=== PATIENT | male | born 1950 | race Caucasian/White ===

== ENCOUNTER 2016-12-09 23:48 | Inpatient (IN) | payer MEDICARE, BC ==
[2016-12-09 23:49] VITALS: BMI 25.1
[2016-12-10] MEDS ORDERED: Sodium Chloride 0.9% 500 ML IV STA (00:10)
--- NOTE | 2016-12-10 00:16 | ED PDOC ---
Arrival/HPI - General Chief Complaint: GI Problem Time Seen by Provider: 12/10/16 00:01 Historian: Patient - History of Present Illness Narrative History of Present Illness (Text): 12/10/16 00:15 A 66 year old male, whose past medical history includes neurogenic bladder with suprapubic catheter, presents to the emergency department complaining of suprapubic and penile pain. Patient reports having had mild urine drainage from penis. pt states he has nausea and vomiting. pt states catheter was changed yesterday by dr gonzalez. pt reports urine is draining into leg bag. Patient denies of fever or any other complaints. 12/10/16 02:34 Symptom Onset: Sudden Symptom Course: Unchanged Context: Home Past Medical History - Provider Review Nursing Documentation Reviewed: Yes - Infectious Disease Hx of Infectious Diseases: None - Tetanus Immunization Tetanus Immunization: Unknown - Cardiac Hx Cardiac Disorders: Yes Hx Hypertension: Yes - Pulmonary Hx Respiratory Disorders: (SMOKED CIGARETTE H/O <PPD QUIT 40 YRS AGO) - Neurological Hx Neurological Disorder: No Hx Paralysis: No - HEENT Hx HEENT Disorder: Yes (reading glasses) - Renal Hx Renal Disorder: Yes (SELF CATH 4 X A DAY) Hx Neurogenic Bladder: Yes Other/Comment: PATIENT HAD LUMBAR AND CERVICAL SX-HAD NEUROGENIC BLADDER - - Endocrine/Metabolic Hx Endocrine Disorders: (BORDERLINE DM) - Hematological/Oncological Hx Blood Disorders: No Hx Blood Transfusions: No - Integumentary Other/Comment: ble discolorations - Musculoskeletal/Rheumatological Hx Musculoskeletal Disorders: Yes Other/Comment: cervical tube implaint due spinal fusion 03/2016 [facility] - Genitourinary/Gynecological Hx Genitourinary Disorders: Yes (URINARY RETENTION,BILATERAL HYDRONEPHROSIS) Hx Hematuria: Yes Other/Comment: retention, suprapubic cath insertion 07/18/14 - Psychiatric Hx Emotional Abuse: No Hx Physical Abuse: No Hx Substance Use: No - Surgical History Other/Comment: left knee sx, cervical spine sx 11/2011, lumbar spine sx 03/2012, cysto urethrogram bilateral stent insertion, colonoscopy 2013, suprapubic catheter insertion, cystotomy tube, and cystogram done today - Anesthesia Hx Anesthesia: Yes Hx Anesthesia Reactions: No Hx Malignant Hyperthermia: No - Suicidal Assessment Feels Threatened In Home Enviroment: No Family/Social History - Physician Review Nursing Documentation Reviewed: Yes Family/Social History: No Known Family HX Smoking Status: Former Smoker Hx Alcohol Use: No Hx Substance Use: No Allergies/Home Meds Allergies/Adverse Reactions: Allergies No Known Allergies Allergy (Unverified 06/16/16 23:28) Home Medications: Home Meds Medication Instructions Recorded Confirmed Amlodipine Besylate [Norvasc] 10 mg PO DAILY 07/10/14 12/10/16 Gabapentin [Neurontin] 300 mg PO TID 12/10/16 12/10/16 Labetalol [Trandate] 100 mg PO BID 12/10/16 12/10/16 Simvastatin 10 mg PO DAILY 12/10/16 12/10/16 oxyCODONE [oxyCODONE Immediate 5 mg PO Q6 12/10/16 12/10/16 Release Tab] Review of Systems - Physician Review All systems were reviewed & negative as marked: Yes - Review of Systems Constitutional: absent: Fevers, Night Sweats Respiratory: absent: SOB, Cough Cardiovascular: absent: Chest Pain Gastrointestinal: absent: Abdominal Pain, Diarrhea, Nausea, Vomiting Genitourinary Male: Other (suprapubic penile pain). absent: Urinary Output Changes Physical Exam Vital Signs Reviewed: Yes Vital Signs Temp Pulse Resp BP Pulse Ox 12/10/16 03:09 16 98 12/10/16 02:48 75 16 138/90 97 12/10/16 00:10 97.4 F L 74 18 143/93 H 96 Temperature: Afebrile Blood Pressure: Normal Pulse: Regular Respiratory Rate: Normal Appearance: Positive for: Well-Appearing Pain Distress: None Mental Status: Positive for: Alert and Oriented X 3 - Systems Exam Head: Present: Atraumatic, Normocephalic Pupils: Present: PERRL Extroacular Muscles: Present: EOMI Conjunctiva: Present: Normal Mouth: Present: Moist Mucous Membranes Neck: Present: Normal Range of Motion Respiratory/Chest: Present: Clear to Auscultation, Good Air Exchange. No: Respiratory Distress, Accessory Muscle Use Cardiovascular: Present: Regular Rate and Rhythm, Normal S1, S2. No: Murmurs Abdomen: Present: Normal Bowel Sounds. No: Tenderness, Distention, Peritoneal Signs Genitourinary Male: Present: Other (suprapubic tenderness, suprapubic catheter in place). No: Circumcised Penis, Lesions, Penile Discharge, Testicle Tenderness, Penile Swelling, Masses, Erythema, Hernias, Testicle Swelling, Prostate Tenderness, Prostate Enlargement Back: Present: Normal Inspection Upper Extremity: Present: Normal Inspection. No: Cyanosis, Edema Lower Extremity: Present: Normal Inspection. No: Edema Neurological: Present: GCS=15, CN II-XII Intact, Speech Normal Skin: Present: Warm, Dry, Normal Color. No: Rashes Psychiatric: Present: Alert, Oriented x 3, Normal Insight, Normal Concentration Medical Decision Making ED Course and Treatment: 12/10/16 00:15 Impression: 66 year old male with suprapubic penile pain. Physical exam shows suprapubic tenderness with catheter in place. Plan: -- Abd/Pelvis CT -- Labs -- Urine Culture -- Urinalysis -- Zofran -- IV Fluids -- Reassess and disposition Prior Visits: Notes and results from previous visits were reviewed. Patient was last seen in the emergency department on 06/16/2016 for evaluation right eye and facial pain status post fall. Patient was discharged home. Progress Notes: 12/10/2016 02:15 Abd/Pelvis CT Dictated By: Natalia Espitia MD FINDINGS: Lower thorax: Small bilateral pleural effusions, with adjacent compressive atelectasis. ABDOMEN: Liver: No acute findings Gallbladder and bile ducts: A single dependent stone is present within the gallbladder, which is otherwise unremarkable. No intra-extrahepatic biliary ductal dilation. Pancreas: Limited evaluation secondary to the lack of intravenous contrast. Spleen: No acute findings. Adrenals: No acute findings. Kidneys and ureters: No obstructing stones. No hydronephrosis. The left kidney is atrophic with prominence of the left ureter. The right kidney is unremarkable. PELVIS: Bladder: The bladder is decompressed with a suprapubic catheter, limiting its evaluation. Reproductive: No acute findings. Appendix: The air filled appendix is of normal-caliber (series 601, image 51; series 2, image 112). ABDOMEN and PELVIS: Stomach and bowel: Mural thickening within the rectum, a nonspecific finding. Peritoneum: No acute findings. Lymph nodes: Limited evaluation without intravenous contrast. Vasculature: No aortic aneurysm. A filter is present within the inferior vena cava. Calcified atherosclerotic disease within the aorta and bilateral iliac arteries. Bones: Fixation hardware within the thoracolumbar spine with disc spacers at the level of L4/L5 and L5/S1 the. No acute fracture. IMPRESSION: Mural thickening within the rectum. Cholelithiasis. Normal appendix. Asymmetric kidneys. 12/10/16 02:27 pt with noted leukocytosis. h/o bacteremia/sepsis. iv antibiotics initiated. case discussed with dr crane. requests dr crespo for consult 12/10/16 02:35 - Lab Interpretations Lab Results: 12/10/16 00:15 12/10/16 00:15 Lab Results 12/10/16 00:26: POC Glucose (mg/dL) 137 H 12/10/16 00:20: Urine Color Yellow, Urine Appearance Turbid, Urine pH 6.5, Ur Specific [place] 1.020, Urine Protein 100 H, Urine Glucose (UA) Negative, Urine Ketones Negative, Urine Blood Large H, Urine Nitrate Positive H, Urine Bilirubin Negative, Urine Urobilinogen 0.2, Ur Leukocyte Esterase Large H, Urine RBC Tntc, Urine WBC Tntc, Urine Bacteria Many 12/10/16 00:15: Sodium 131 L, Potassium 3.9, Chloride 93 L, Carbon Dioxide 27, Anion Gap 15, BUN 33 H, Creatinine 1.2, Est GFR ( Amer) > 60, Est GFR ( Non-Af Amer) > 60, Random Glucose 128 H, Calcium 8.9, Total Bilirubin 0.6, AST 36, ALT 40, Alkaline Phosphatase 104, Total Protein 7.1, Albumin 4.2, Globulin 2.9, Albumin/Globulin Ratio 1.4, Lipase 250 12/10/16 00:15: PT 10.2, INR 0.94, APTT 24.7 12/10/16 00:15: WBC 15.8 H D, RBC 3.83, Hgb 12.1 L, Hct 34.9 L, MCV 91.1, MCH 31.6, MCHC 34.7, RDW 12.7, Plt Count 209, MPV 9.1, Gran % 85.5 H, Lymph % (Auto ) 10.0 L, [place] % (Auto) 4.2, Eos % (Auto) 0.2 L, Baso % (Auto) 0.1, Gran # 13.50 H, Lymph # 1.6, [place] # 0.7 H, Eos # 0.0, Baso # 0.01 I have reviewed the lab results: Yes - RAD Interpretation Radiology Orders: 12/10/16 00:43 ABD & PELVIS W/O PO OR IV CONT [CT] Stat - Medication Orders Current Medication Orders: Acetaminophen (Tylenol 325mg Tab) 650 mg PO Q6H PRN PRN Reason: Pain, Mild (1-3) Amlodipine Besylate (Norvasc) 10 mg PO DAILY [facility] Last Admin: 12/10/16 10:34 Dose: 10 mg Atorvastatin Calcium (Lipitor) 10 mg PO DIN [facility] Gabapentin (Neurontin) 300 mg PO TID [facility] PRN Reason: Protocol Last Admin: 12/10/16 10:17 Dose: 300 mg Re-Assess: Reassess Psych Meds Document 12/10/16 11:17 ID (Rec: 12/10/16 11:35 ID [id number]) Reassess Psych Med Effective Ceftriaxone Sodium (Rocephin 1 Gram Ivpb) 1 gm in 100 mls @ 100 mls/hr IVPB DAILY [facility] PRN Reason: Protocol Labetalol HCl (Trandate) 100 mg PO BID [facility] Last Admin: 12/10/16 10:34 Dose: 100 mg Oxycodone HCl (Oxycodone Immediate Release Tab) 5 mg PO Q6H PRN PRN Reason: Pain, moderate (4-7) Last Admin: 12/10/16 11:31 Dose: 5 mg Discontinued Medications Sodium Chloride (Sodium Chloride 0.9%) 500 mls @ 1,000 mls/hr IV .Q30M STA Stop: 12/10/16 00:39 Last Admin: 12/10/16 00:28 Dose: 1,000 mls/hr Ceftriaxone Sodium (Rocephin 1 Gram Ivpb) 1 gm in 100 mls @ 200 mls/hr IVPB STAT [facility] PRN Reason: Protocol Stop: 12/10/16 01:06 Last Admin: 12/10/16 00:58 Dose: 200 mls/hr Ceftriaxone Sodium (Rocephin 1 Gram Ivpb) 1 gm in 100 mls @ 100 mls/hr IVPB ONCE ONE PRN Reason: Protocol Stop: 12/10/16 11:27 Ondansetron HCl (Zofran Inj) 4 mg IVP STAT STA Stop: 12/10/16 00:11 Last Admin: 12/10/16 00:27 Dose: 4 mg - Scribe Statement The provider has reviewed the documentation as recorded by the Lyle Hopkins Provider Scribe Attestation: All medical record entries made by the Lyle were at my direction and personally dictated by me. I have reviewed the chart and agree that the record accurately reflects my personal performance of the history, physical exam, medical decision making, and the department course for this patient. I have also personally directed, reviewed, and agree with the discharge instructions and disposition. Disposition/Present on Arrival - Present on Arrival Any Indicators Present on Arrival: No History of DVT/PE: No History of Uncontrolled Diabetes: No Urinary Catheter: Yes (suprapubic catheter) History of Decub. Ulcer: No History Surgical Site Infection Following: None - Disposition Have Diagnosis and Disposition been Completed?: Yes Diagnosis: Leukocytosis, UTI (urinary tract infection) Disposition: HOSPITALIZED Disposition Time: 03:00 Patient Problems: Current Active Problems Problem Status Onset Leukocytosis Acute UTI (urinary tract infection) Acute Condition: STABLE
[2016-12-10 00:26] LABS: ADD MANUAL DIFF? NO
[2016-12-10 00:32] LABS: PH,URINE 6.5 (4.7-8.0); URINE BILIRUBIN NEGATIVE (NEGATIVE); URINE BLOOD LARGE (NEGATIVE); URINE GLUCOSE (UA) NEGATIVE (NEGATIVE); URINE KETONE NEGATIVE (NEGATIVE); URINE LEUKOCYTE ESTERASE LARGE Leu/uL (NEGATIVE); URINE PROTEIN 100 mg/dL (<30 mg/dL); URINE UROBILINOGEN 0.2 E.U./dL (<1 E.U./dL)
[2016-12-10 00:33] LABS: BASO # 0.01 K/mm3 (0.0-2.0); BASO % 0.1 % (0.0-3.0); EOS % 0.2 % (1.5-5.0); GRAN % 85.5 % (50.0-68.0); HEMATOCRIT 34.9 % (42.0-52.0); LYMPH # 1.6 (1.2-3.4); MEAN CELL VOLUME 91.1 fl (80.0-105.0); MEAN CORPUSCULAR HEMOGLOBIN 31.6 pg (25.0-35.0); MEAN CORPUSCULAR HGB CONC 34.7 g/dl (31.0-37.0); MEAN PLATELET VOLUME 9.1 fl (7.0-11.0); MONO # 0.7 (0.1-0.6); MONO % 4.2 % (1.0-6.0); PLATELET COUNT 209 10^3/uL (120.0-450.0); RED CELL DISTRIBUTION WIDTH 12.7 % (11.5-14.5); WHITE BLOOD COUNT 15.8 10^3/ul (4.5-11.0)
[2016-12-10 00:36] LABS: URINE APPEARANCE TURBID (CLEAR); URINE COLOR YELLOW (YELLOW)
[2016-12-10] MEDS ORDERED: cefTRIAXone 1 gm 1 GM/100 ML BAG IVPB STA (00:37)
[2016-12-10 00:40] LABS: ALB/GLOB RATIO 1.4 (1.1-1.8); ALKALINE PHOSPHATASE 104 U/L (38-133); ALT/SGPT 40 U/L (7-56); AST/SGOT 36 U/L (15-59); BILIRUBIN,TOTAL 0.6 mg/dL (0.2-1.3); BLOOD UREA NITROGEN 33 mg/dL (7-21); CALCIUM 8.9 mg/dL (8.4-10.5); CARBON DIOXIDE 27 mmol/L (21-33); GFR AFRICAN-AMERICAN > 60; GLUCOSE,RANDOM 128 mg/dL (70-110); LIPASE 250 U/L (23-300); POTASSIUM 3.9 mmol/L (3.6-5.0); SODIUM 131 mmol/L (132-148); TOTAL PROTEIN 7.1 g/dL (5.8-8.3)
[2016-12-10 00:41] LABS: INR 0.94 (0.93-1.08); PARTIAL THROMBOPLASTIN TIME 24.7 Seconds (23.7-30.8)
[2016-12-10 00:42] LABS: URINE BACTERIA MANY (NEG); URINE RBC TNTC /hpf (0-2); URINE WBC TNTC /hpf (0-6)
[2016-12-10 00:51] LABS: CHLORIDE 93 mmol/L (98-107)
--- NOTE | 2016-12-10 02:15 | CT ---
EXAM: CT Abdomen and Pelvis Without Intravenous Contrast CLINICAL HISTORY: 66 years old, male; Pain; Abdominal pain; Additional info: Lower abd pain TECHNIQUE: Axial computed tomography images of the abdomen and pelvis without intravenous contrast. All CT scans at this facility use one or more dose reduction techniques, viz.: automated exposure control; ma/kV adjustment per patient size (including targeted exams where dose is matched to indication; i.e. head); or iterative reconstruction technique. Coronal and sagittal reformatted images were created and reviewed. COMPARISON: None FINDINGS: Lower thorax: Small bilateral pleural effusions, with adjacent compressive atelectasis. ABDOMEN: Liver: No acute findings Gallbladder and bile ducts: A single dependent stone is present within the gallbladder, which is otherwise unremarkable. No intra-extrahepatic biliary ductal dilation. Pancreas: Limited evaluation secondary to the lack of intravenous contrast. Spleen: No acute findings. Adrenals: No acute findings. Kidneys and ureters: No obstructing stones. No hydronephrosis. The left kidney is atrophic with prominence of the left ureter. The right kidney is unremarkable. PELVIS: Bladder: The bladder is decompressed with a suprapubic catheter, limiting its evaluation. Reproductive: No acute findings. Appendix: The air filled appendix is of normal-caliber (series 601, image 51; series 2, image 112). ABDOMEN and PELVIS: Stomach and bowel: Mural thickening within the rectum, a nonspecific finding. Peritoneum: No acute findings. Lymph nodes: Limited evaluation without intravenous contrast. Vasculature: No aortic aneurysm. A filter is present within the inferior vena cava. Calcified atherosclerotic disease within the aorta and bilateral iliac arteries. Bones: Fixation hardware within the thoracolumbar spine with disc spacers at the level of L4/L5 and L5/S1 the. No acute fracture. IMPRESSION: Mural thickening within the rectum. Cholelithiasis. Normal appendix. Asymmetric kidneys.
[2016-12-10] MEDS ORDERED: cefTRIAXone 1 gm 1 GM/100 ML BAG IVPB ONE (10:28)
[2016-12-10] MEDS: oxyCODONE 5 mg Immediate Release Tab PO PRN ×2 (11:31→21:28)
--- NOTE | 2016-12-10 12:25 | CP.PCM.CON ---
History of Present Illness - History of Present Illness History of Present Illness: 66 year old male with PMH of neurogenic bladder with suprapubic catheter, history of MRSA bacteremia, Pulmonary embolism, Degenerative disc disease S/P lumbar surgery, Coagulopathy from anticoagulation, S/P left knee surgery, came in to [facility] complaining of pain in the suprapubic area as well burning sensation in this penile urethra for the past 2 days. He denies fever or chills, no nausea or vomiting, no chest pain, no SOB, no headache or dizziness, no abdominal pain, no diarrhea. He states that Dr. Pineda sees him regularly, and his suprapubic catheter was just changed 2 days ago. Infectious Diseases consult is requested to further evaluate and manage. Review of Systems - Review of Systems All systems: reviewed and no additional remarkable complaints except (as per HPI ) Past Patient History - Infectious Disease Hx of Infectious Diseases: None - Tetanus Immunizations Tetanus Immunization: Unknown - Past Social History Smoking Status: Former Smoker - CARDIAC Hx Cardiac Disorders: Yes Hx Hypertension: Yes - PULMONARY Hx Respiratory Disorders: (SMOKED CIGARETTE H/O <PPD QUIT 40 YRS AGO) - NEUROLOGICAL Hx Neurological Disorder: No Hx Paralysis: No - HEENT Hx HEENT Problems: Yes (reading glasses) - RENAL Hx Chronic Kidney Disease: Yes (SELF CATH 4 X A DAY) Hx Neurogenic Bladder: Yes Other/Comment: PATIENT HAD LUMBAR AND CERVICAL SX-HAD NEUROGENIC BLADDER - - ENDOCRINE/METABOLIC Hx Endocrine Disorders: (BORDERLINE DM) - HEMATOLOGICAL/ONCOLOGICAL Hx Blood Disorders: No Hx Blood Transfusions: No - INTEGUMENTARY Other/Comment: ble discolorations - MUSCULOSKELETAL/RHEUMATOLOGICAL Hx Musculoskeletal Disorders: Yes Other/Comment: cervical tube implaint due spinal fusion 03/2016 [facility] - GENITOURINARY/GYNECOLOGICAL Hx Genitourinary Disorders: Yes (URINARY RETENTION,BILATERAL HYDRONEPHROSIS) Hx Hematuria: Yes Other/Comment: retention, suprapubic cath insertion 07/18/14 - PSYCHIATRIC Hx Emotional Abuse: No Hx Physical Abuse: No Hx Substance Use: No - SURGICAL HISTORY Other/Comment: left knee sx, cervical spine sx 11/2011, lumbar spine sx 03/2012, cysto urethrogram bilateral stent insertion, colonoscopy 2013, suprapubic catheter insertion, cystotomy tube, and cystogram done today - ANESTHESIA Hx Anesthesia: Yes Hx Anesthesia Reactions: No Hx Malignant Hyperthermia: No Meds Allergies/Adverse Reactions: Allergies Allergy/AdvReac Type Severity Reaction Status Date / Time No Known Allergies Allergy Unverified 06/16/16 23:28 Physical Exam - Constitutional Appears: Non-toxic, No Acute Distress - Head Exam Head Exam: NORMAL INSPECTION - ENT Exam ENT Exam: Mucous Membranes Moist - Neck Exam Neck exam: Negative for: Lymphadenopathy, Meningismus - Respiratory Exam Respiratory Exam: Decreased Breath Sounds - Cardiovascular Exam Cardiovascular Exam: +S1, +S2 - GI/Abdominal Exam GI & Abdominal Exam: Soft. absent: Tenderness Results - Vital Signs Recent Vital Signs: Last Vital Signs Temp 97.4 F L 12/10/16 00:10 Pulse 75 12/10/16 02:48 Resp 12 12/10/16 03:53 BP 138/90 12/10/16 02:48 Pulse Ox 98 12/10/16 03:09 - Labs Result Diagrams: 12/10/16 00:15 12/10/16 00:15 Assessment & Plan - Assessment and Plan (Free Text) Plan: Assessment consider sepsis due to UTI in this patient with neurogenic bladder and suprapubic catheter history of persistent MRSA bacteremia, probably endovasculitis / septic thrombus / septic emboli; [facility] did not specifically show endocarditis, only a mitral leaflet pathology (2014) - completed course of Daptomycin Pulmonary embolism DEgenerative disc disease S/P lumbar surgery Coagulopathy from anticoagulation Plan started patient on Rocephin pending blood and urine cx; follow up Dr. Pineda' evaluation and recommendations will monitor clinically
[2016-12-10] MEDS: MYRBETRIQ 50MG PO SCH (21:29)
--- NOTE | 2016-12-10 22:59 | HP ---
HISTORY OF PRESENT ILLNESS: The patient is a 66-year-old [place] male, known to me from previous admission. He states he has indwelling catheter. He has some discomfort in his suprapubic area and his penis. He is also complaining of having fever and chills. No documented fever, however, he was feeling discomfort inside himself as if he is shaking, so he came to emergency room for further evaluation. No history of hematuria, no history of nausea or vomiting. Does complain of generalized body aches and pain and chills. PAST MEDICAL HISTORY: Significant for; 1. Hypertension. 2. Hyperlipidemia. 3. History of lumbar and cervical surgeries resulted in neurogenic bladder. The patient used to self-catheter but he has suprapubic catheter now. 4. Borderline diabetes. ALLERGIES: HE IS ALLERGIC TO PLAVIX. SOCIAL HISTORY: He lives with his family, history of smoking and socially drinks. MEDICATIONS AT HOME: He is on amlodipine 10 mg daily, oxycodone, simvastatin 10 mg daily, Lipitor 100 mg twice a day, Neurontin 300 three times a day. REVIEW OF SYSTEMS: Significant for chills and not feeling well. PHYSICAL EXAMINATION GENERAL: He is awake and alert, communicative, sitting in chair. VITAL SIGNS: He is afebrile, pulse 71, respirations 18, blood pressure 132/86. LUNGS: Bilaterally good air flow. No rhonchi or crackle. HEART: S1 and S2 audible. ABDOMEN: Soft. Suprapubic catheter in place. Leg bag has clear rocio-colored urine. No hematuria. LABORATORY DATA: WBC is 15.8, hemoglobin 12, hematocrit 34.9, platelets of 209. Chemistry; sodium 131, potassium 3.9, chloride 93, CO2 of 27, BUN 33, creatinine 1.2, blood sugar of 137. Urinalysis: Positive nitrites, large leukocyte and rbc's and wbc's too numerous to count. The patient had CT scan of the abdomen and pelvis done that shows cholelithiasis, normal appendix and asymmetric kidney. ASSESSMENT: 1. Suprapubic discomfort. 2. Pyuria, rule out urosepsis. 3. Borderline diabetes. 4. Hypertension. 5. Chronic back pain. 6. Neurogenic bladder, status post suprapubic catheterization. PLAN: The patient has been empirically started on antibiotics. He received 2 g of Rocephin. We will resume his Lipitor, gabapentin and amlodipine. Awaiting ID evaluation. and Dr. Pineda have been consulted. Boyd Covington MD
[2016-12-11 06:53] LABS: ADD MANUAL DIFF? NO
[2016-12-11 07:01] LABS: BASO # 0.01 K/mm3 (0.0-2.0); BASO % 0.1 % (0.0-3.0); EOS % 0.3 % (1.5-5.0); GRAN # 7.87 (1.4-6.5); GRAN % 81.4 % (50.0-68.0); HEMATOCRIT 36.4 % (42.0-52.0); LYMPH # 1.3 (1.2-3.4); LYMPH % 13.7 % (22.0-35.0); MEAN CELL VOLUME 93.1 fl (80.0-105.0); MEAN CORPUSCULAR HEMOGLOBIN 30.7 pg (25.0-35.0); MEAN PLATELET VOLUME 9.4 fl (7.0-11.0); MONO # 0.4 (0.1-0.6); MONO % 4.5 % (1.0-6.0); PLATELET COUNT 208 10^3/uL (120.0-450.0); RED CELL DISTRIBUTION WIDTH 12.9 % (11.5-14.5); WHITE BLOOD COUNT 9.7 10^3/ul (4.5-11.0)
[2016-12-11 07:21] LABS: ALB/GLOB RATIO 1.4 (1.1-1.8); ALKALINE PHOSPHATASE 97 U/L (38-133); ALT/SGPT 31 U/L (7-56); AST/SGOT 28 U/L (15-59); BILIRUBIN,TOTAL 0.7 mg/dL (0.2-1.3); BLOOD UREA NITROGEN 19 mg/dL (7-21); CALCIUM 9.1 mg/dL (8.4-10.5); CARBON DIOXIDE 30 mmol/L (21-33); CHLORIDE 100 mmol/L (98-107); GFR AFRICAN-AMERICAN > 60; GLUCOSE,RANDOM 112 mg/dL (70-110); POTASSIUM 4.5 mmol/L (3.6-5.0); SODIUM 138 mmol/L (132-148); TOTAL PROTEIN 7.2 g/dL (5.8-8.3)
[2016-12-11 08:54] VITALS: RESP 20
[2016-12-11] MEDS: cefTRIAXone 1 gm 1 GM/100 ML BAG IVPB SCH (09:20)
[2016-12-11] MEDS: oxyCODONE 5 mg Immediate Release Tab PO PRN ×2 (15:18→21:36)
[2016-12-11 17:49] VITALS: PULSE 75
--- NOTE | 2016-12-11 18:15 | CP.PCM.PN ---
Subjective - Date & Time of Evaluation Date of Evaluation: 12/11/16 Time of Evaluation: 11:35 - Subjective Subjective: Still has dysuria, no fevers overnight. Objective - Vital Signs/Intake and Output Vital Signs (last 24 hours): Temp Pulse Resp BP Pulse Ox 98.5 F 71 18 132/86 99 12/10/16 08:46 12/10/16 17:17 12/10/16 08:46 12/10/16 17:17 12/10/16 08:46 Intake and Output: 12/11/16 12/11/16 06:59 18:59 Intake Total 900 Output Total 1300 Balance -400 - Medications Medications: Current Medications Acetaminophen (Tylenol 325mg Tab) 650 mg PO Q6H PRN PRN Reason: Pain, Mild (1-3) Last Admin: 12/10/16 17:33 Dose: 650 mg Amlodipine Besylate (Norvasc) 10 mg PO DAILY [facility] Last Admin: 12/10/16 10:34 Dose: 10 mg Atorvastatin Calcium (Lipitor) 10 mg PO DIN [facility] Last Admin: 12/10/16 17:17 Dose: 10 mg Gabapentin (Neurontin) 300 mg PO TID [facility] PRN Reason: Protocol Last Admin: 12/10/16 17:17 Dose: 300 mg Home Med (Home Med) 1 unit PO HS [facility] Last Admin: 12/10/16 21:29 Dose: 1 unit Ceftriaxone Sodium (Rocephin 1 Gram Ivpb) 1 gm in 100 mls @ 100 mls/hr IVPB DAILY [facility] PRN Reason: Protocol Labetalol HCl (Trandate) 100 mg PO BID [facility] Last Admin: 12/10/16 17:17 Dose: 100 mg Oxycodone HCl (Oxycodone Immediate Release Tab) 5 mg PO Q6H PRN PRN Reason: Pain, moderate (4-7) Last Admin: 12/10/16 21:28 Dose: 5 mg - Labs Labs: 12/11/16 06:00 12/11/16 06:00 PT 10.2 Seconds (9.9-11.8) 12/10/16 00:15 INR 0.94 (0.93-1.08) 12/10/16 00:15 APTT 24.7 Seconds (23.7-30.8) 12/10/16 00:15 - Constitutional Appears: Non-toxic, No Acute Distress - Head Exam Head Exam: NORMAL INSPECTION - ENT Exam ENT Exam: Mucous Membranes Moist - Neck Exam Neck Exam: absent: Lymphadenopathy, Meningismus - Respiratory Exam Respiratory Exam: Decreased Breath Sounds - Cardiovascular Exam Cardiovascular Exam: +S1, +S2 - GI/Abdominal Exam GI & Abdominal Exam: Soft. absent: Tenderness Assessment and Plan - Assessment and Plan (Free Text) Plan: Assessment consider sepsis due to UTI in this patient with neurogenic bladder and suprapubic catheter with gram negative bacilli history of persistent MRSA bacteremia, probably endovasculitis / septic thrombus / septic emboli; [facility] did not specifically show endocarditis, only a mitral leaflet pathology (2014) - completed course of Daptomycin Pulmonary embolism DEgenerative disc disease S/P lumbar surgery Coagulopathy from anticoagulation Plan continue Rocephin day 2 pending identification and sensitivities of the gram negative bacilli in the urine cx; follow up Dr. Pineda' evaluation and recommendations will continue to monitor clinically
[2016-12-11] MEDS: MYRBETRIQ 50MG PO SCH (21:37)
--- NOTE | 2016-12-12 01:03 | PN ---
DATE: 12/11/2016 SUBJECTIVE: The patient has no complaints of any chest pain. No shortness of breath. No headaches or dizziness. PHYSICAL EXAMINATION: VITAL SIGNS: Temperature is 98.7, pulse is 75, blood pressure is 128/80, respirations 20. GENERAL: The patient is lying in bed, flat, comfortable. HEENT: No oral lesion. Anicteric sclerae. Moist mucosa. NECK: No JVD, adenopathy, or thyromegaly. CARDIOVASCULAR: S1 and S2, regular. No murmurs, rubs, or gallops. LUNGS: Clear to auscultation bilaterally. No wheeze, rales, or rhonchi. ABDOMEN: Bowel sounds are positive, soft, nontender and nondistended. EXTREMITIES: No cyanosis, clubbing or edema. LABORATORY DATA: White count is 9.7, hemoglobin 12.0. Labs have been reviewed. ASSESSMENT: 1. Urinary tract infection. 2. Hypertension. 3. Chronic back pain. 4. Neurogenic bladder with suprapubic catheter. PLAN: The patient is currently on Lipitor for dyslipidemia. He is receiving amlodipine for hypertension. He is on labetalol for his hypertension. He is getting Tylenol as needed. He is on a heart healthy diet. He is being followed by infectious disease and also by Dr. Pineda. Chepe Cuellar MD [facility]
[2016-12-12] MEDS: oxyCODONE 5 mg Immediate Release Tab PO PRN (08:35)
[2016-12-12 09:26] VITALS: BP 132/97; TEMP 98.3; O2SAT 96
[2016-12-12] MEDS: cefTRIAXone 1 gm 1 GM/100 ML BAG IVPB SCH (10:47)
--- NOTE | 2016-12-12 15:07 | CP.PCM.PN ---
Subjective - Date & Time of Evaluation Date of Evaluation: 12/12/16 Time of Evaluation: 11:35 - Subjective Subjective: Comfortable, not in distress, less dysuria, much improved suprapubic pain. No fevers. Objective - Vital Signs/Intake and Output Vital Signs (last 24 hours): Temp Pulse Resp BP Pulse Ox 98.3 F 75 20 132/97 H 96 12/12/16 08:00 12/12/16 08:00 12/12/16 08:00 12/12/16 10:47 12/12/16 08:00 Intake and Output: 12/12/16 12/12/16 06:59 18:59 Intake Total 1760 Output Total 1850 Balance -90 - Medications Medications: Current Medications Acetaminophen (Tylenol 325mg Tab) 650 mg PO Q6H PRN PRN Reason: Pain, Mild (1-3) Last Admin: 12/10/16 17:33 Dose: 650 mg Amlodipine Besylate (Norvasc) 10 mg PO DAILY [facility] Last Admin: 12/12/16 10:47 Dose: 10 mg Atorvastatin Calcium (Lipitor) 10 mg PO DIN [facility] Last Admin: 12/11/16 17:41 Dose: 10 mg Docusate Sodium (Colace) 100 mg PO BID [facility] Last Admin: 12/12/16 10:47 Dose: 100 mg Gabapentin (Neurontin) 300 mg PO TID [facility] PRN Reason: Protocol Last Admin: 12/12/16 10:47 Dose: 300 mg Home Med (Home Med) 1 unit PO HS [facility] Last Admin: 12/11/16 21:37 Dose: 1 unit Ceftriaxone Sodium (Rocephin 1 Gram Ivpb) 1 gm in 100 mls @ 100 mls/hr IVPB DAILY [facility] PRN Reason: Protocol Last Admin: 12/12/16 10:47 Dose: 100 mls/hr Labetalol HCl (Trandate) 100 mg PO BID [facility] Last Admin: 12/12/16 10:48 Dose: 100 mg Oxycodone HCl (Oxycodone Immediate Release Tab) 5 mg PO Q6H PRN PRN Reason: Pain, moderate (4-7) Last Admin: 12/12/16 08:35 Dose: 5 mg - Labs Labs: 12/11/16 06:00 12/11/16 06:00 PT 10.2 Seconds (9.9-11.8) 12/10/16 00:15 INR 0.94 (0.93-1.08) 12/10/16 00:15 APTT 24.7 Seconds (23.7-30.8) 12/10/16 00:15 - Constitutional Appears: Non-toxic, No Acute Distress - Head Exam Head Exam: NORMAL INSPECTION - ENT Exam ENT Exam: Mucous Membranes Moist - Neck Exam Neck Exam: absent: Lymphadenopathy, Meningismus - Respiratory Exam Respiratory Exam: Decreased Breath Sounds - Cardiovascular Exam Cardiovascular Exam: +S1, +S2 - GI/Abdominal Exam GI & Abdominal Exam: Soft. 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 Pineda has repositioned the suprapubic catheter discussed with Dr. Covington - we can change to PO Cefpodoxime for another 5-7 days with outpatient follow up with Dr. Pineda
--- NOTE | 2016-12-12 19:54 | CON ---
DATE: 12/12/2016 CHIEF COMPLIANT: Urinary tract infection. HISTORY OF PRESENT ILLNESS: The patient is a 66-year-old male, known to me. He has a history of neurogenic bladder and retention, had an indwelling Acevedo placed, which was then in the past replaced with a suprapubic tube, which is changed monthly. It was changed several days ago without any incident and has been draining well. He came to the ER complaining of some discomfort in his suprapubic area. The history says fever and chills, but he told me he did not have any fever. He was just feeling uncomfortable. The tube was draining well with no hematuria. A white count was done in the ER, which was 15,800 and he was admitted. PAST MEDICAL HISTORY: Significant for hypertension, hyperlipidemia. He has had neurogenic bladder and has had cervical and lumbar surgeries. He is scheduled to have another surgery in the near future; borderline diabetes mellitus. ALLERGIES: HE IS ALLERGIC TO PLAVIX. MEDICATIONS AT HOME: He is on oxycodone, Zocor, Norvasc, Lipitor, Neurontin. SOCIAL HISTORY: He does smoke and drink any drink socially. FAMILY HISTORY: Noncontributory. REVIEW OF SYMPTOMS: No symptoms referable to the head, eyes, ears, nose, or throat. No cardiac or respiratory symptoms. No gastrointestinal symptoms. He has no suprapubic pain or abdominal pain at this time. No psychiatric symptoms. No dermatologic symptoms. PHYSICAL EXAMINATION: VITAL SIGNS: Shows him to be afebrile, blood pressure 128/80, respirations 20, pulse 75. HEENT: Normocephalic. Sclerae are clear. Conjunctivae not injected. NECK: No CVA pain. ABDOMEN: No hepatosplenomegaly, rebound, or guarding. The suprapubic tube is draining well and it is in good position. GENITALIA: Penis, testicles, cord, epididymis are normal. SKIN: No purpura or edema. LABORATORY DATA: Lab work shows a white count 9700. Chemistries show a creatinine of 1.0. His coagulations are normal. His urinalysis has a gram-negative carissa which is not surprising since he has chronic indwelling Acevedo catheter. He currently has been put on Rocephin by ID. I think that what he was experiencing was just some spasms from the suprapubic tube. His white count was 15,000 which prompted the admission, it is now normal and from the urologic point of view, he can be sent home once ID is known with p.o. antibiotics for a total of 7 to 10 days. We will defer to ID for a final recommendation. The patient will follow up in the office. Dakota Pineda MD
[2016-12-12] MEDS ORDERED: Cefpodoxime (Vantin) 200 mg Tab PO SCH (22:00)
--- NOTE | 2016-12-13 05:44 | DS ---
HISTORY OF PRESENT ILLNESS: The patient is a 66-year-old, seen and examined, sitting in chair, seems to be comfortable. No nausea, vomiting or diarrhea. No fever. No chills. PHYSICAL EXAMINATION: VITAL SIGNS: He is afebrile, pulse 75, respirations 20 and blood pressure 132/97. LUNGS: Bilateral fair air flow. No rhonchi or crackle. HEART: S1 and S2 audible. No murmur. ABDOMEN: Soft. He has suprapubic catheter draining clear urine. No hematuria. LABORATORY DATA: He had blood culture done that is negative. Urine culture is contaminated; however, the patient is asymptomatic. ASSESSMENT: 1. Indwelling catheter, fever and chills, but there is no documented culture. 2. History of degenerative disk disease. 3. Hypertension. 4. Non-insulin dependent diabetes. 5. Neurogenic bladder leading to suprapubic catheter placement. PLAN: The patient is asymptomatic, afebrile, white count has improved. He will be discharged home on Vantin 200 twice a day for 5 more days and he will follow his PMD. Boyd Covington MD
--- NOTE | 2016-12-13 17:23 | PQF GENQUE ---
12/13/16 Dr. Covington, Please see urine culture dated 12/12/16. Your summary states that patient has indwelling catheter but culture was not available at the time. Please indicate whether you agree, disagree, undetermined with UTI due to urinary catheter. Thank you. Clarification of your documentation is requested to better reflect the severity of illness and intensity of treatment of your patient. Indicators present [] Specify: [] [] Specify: [] [] Specify: [] [] Specify: [] Location in the medical record that reflects the above clinical findings: [] Treatment Provided: [] PHYSICIAN'S RESPONSE Based on your medical judgment of the clinical indicators outlined above please clarify the following: [] Practitioner response [] If unable to determine, please check the box, sign and date. Present On Admission (POA) Indicator: [] Present at the time of admission [] Not present at the time of admission [] Clinically Undetermined In responding to this query, please exercise your independent professional judgment. The fact that a question is asked does not imply that any particular answer is desired or expected. Thank you for your clarification on this documentation. If you have any questions please call:[ ] * Thank you, [ ] director power OLIVIA
--- NOTE | 2016-12-13 17:27 | PQF SEPSIS ---
12/13/16 Dr. Covington, ED notes document sepsis. Also, ID outside sales consultant indicates "consider sepsis" on his consult of 12/10 and progress of 12/11 and 12/12. Do you agree, disagree, undetermined, other with the diagnosis of systemic sepsis for this patient? If you agree, was sepsis present on admission? Thank you. Clarification of your documentation is requested to better reflect the severity of illness and intensity of treatment of your patient. Indicators present [] Temp < 96.8 or > 100.4 [] WBC count > 12,000/mm3 or <000/mm3 or 10% immature neutrophils [] Heart Rate > 90 [] Respiratory Rate > 20 [] Fever or hypothermia [] Chills [] Positive blood cultures [] Hypotension [] Metabolic acidosis (Elevated lactate level, anion gap or reduced blood pH) [] Acute confusion /Altered Mental Status [] Shock [] Other: [] Location in the medical record that reflects the above clinical findings: [] Treatment Provided: [] PHYSICIAN'S RESPONSE Based on your medical judgment of the clinical indicators outlined above, are you treating this patient for a known or suspected: [] Sepsis / Septicemia Please specify organism if known [] [] SIRS (Systemic Inflammatory Response Syndrome) [] Severe Sepsis (Sepsis with Associated Organ Dysfunction) [] Fever of Unknown Origin [] Other, please indicate: [] [x] If Unable to Determine, please check the box, sign and date. Present On Admission (POA) Indicator: [x] Present at the time of admission [] Not present at the time of admission [] Clinically Undetermined In responding to this query, please exercise your independent professional judgment. The fact that a question is asked does not imply that any particular answer is desired or expected. Thank you for your clarification on this documentation. If you have any questions please call:[ ] * Thank you, [ ] shoes hand sewer OLIVIA
--- NOTE | 2016-12-16 09:08 | PQF GENQUE ---
12/16/16 Dr. Covington, You signed the previous query form on this, but I do not see your answer. Please indicate whether you agree, disagree, undetermined that patient had a UTI due to catheter. Thank you. Clarification of your documentation is requested to better reflect the severity of illness and intensity of treatment of your patient. Indicators present [] Specify: [] [] Specify: [] [] Specify: [] [] Specify: [] Location in the medical record that reflects the above clinical findings: [] Treatment Provided: [] PHYSICIAN'S RESPONSE Based on your medical judgment of the clinical indicators outlined above please clarify the following: [] Practitioner response [] If unable to determine, please check the box, sign and date. Present On Admission (POA) Indicator: [] Present at the time of admission [] Not present at the time of admission [X] Clinically Undetermined In responding to this query, please exercise your independent professional judgment. The fact that a question is asked does not imply that any particular answer is desired or expected. Thank you for your clarification on this documentation. If you have any questions please call:[ ] * Thank you, [ ] hand cutter OLIVIA
--- NOTE | 2016-12-19 08:54 | PQF GENQUE ---
12/19/16 Dr. Covington, In light of your previous query answer--that UTI due to catheter is undetermined --and your discharge summary diagnoses--please state what diagnosis you want to be coded as the principal diagnosis (reason for admission after study). Thank you. Clarification of your documentation is requested to better reflect the severity of illness and intensity of treatment of your patient. Indicators present [] Specify: [x uti due to catheter ] [] Specify: [] [] Specify: [] [] Specify: [] Location in the medical record that reflects the above clinical findings: [] Treatment Provided: [] PHYSICIAN'S RESPONSE Based on your medical judgment of the clinical indicators outlined above please clarify the following: [] Practitioner response [] If unable to determine, please check the box, sign and date. Present On Admission (POA) Indicator: [] Present at the time of admission [] Not present at the time of admission [] Clinically Undetermined In responding to this query, please exercise your independent professional judgment. The fact that a question is asked does not imply that any particular answer is desired or expected. Thank you for your clarification on this documentation. If you have any questions please call:[ ] * Thank you, [ ] can cleaner OLIVIA
== END 2016-12-12 14:43 | disposition home or self-care (01) | DRG 699 ==
LOC: ED 23:48 → ERH 12-10 02:21 → 3RSO 12-10 03:17
PROVIDERS: ADMIT Internal Medicine; ATTEND Internal Medicine
DX: T83.518A Infection and inflammatory reaction due to other urinary catheter, initial encounter (principal); N39.0 Urinary tract infection, site not specified; D68.9 Coagulation defect, unspecified; E11.22 Type 2 diabetes mellitus with diabetic chronic kidney disease; N31.9 Neuromuscular dysfunction of bladder, unspecified; N13.30 Unspecified hydronephrosis; I12.9 Hypertensive chronic kidney disease with stage 1 through stage 4 chronic kidney disease, or unspecified chronic kidney disease; N18.9 Chronic kidney disease, unspecified; T45.515A Adverse effect of anticoagulants, initial encounter; E78.5 Hyperlipidemia, unspecified; G89.29 Other chronic pain; K80.20 Calculus of gallbladder without cholecystitis without obstruction; Z79.899 Other long term (current) drug therapy; Z98.1 Arthrodesis status; R33.9 Retention of urine, unspecified; R31.9 Hematuria, unspecified; M54.9 Dorsalgia, unspecified; Z86.14 Personal history of Methicillin resistant Staphylococcus aureus infection; Z86.711 Personal history of pulmonary embolism; M51.36 Other intervertebral disc degeneration, lumbar region; Z87.891 Personal history of nicotine dependence; Z88.8 Allergy status to other drugs, medicaments and biological substances; B95.61 Methicillin susceptible Staphylococcus aureus infection as the cause of diseases classified elsewhere

== ENCOUNTER 2017-02-06 22:55 | Inpatient (IN) | payer MEDICARE, BC ==
[2017-02-06 23:05] VITALS: BMI 25.8
[2017-02-06 23:37] LABS: BASO # 0.02 K/mm3 (0.0-2.0); BASO % 0.2 % (0.0-3.0); EOS # 0.2 (0.0-0.7); EOS % 2.1 % (1.5-5.0); GRAN # 7.34 (1.4-6.5); GRAN % 78.1 % (50.0-68.0); LYMPH # 1.2 (1.2-3.4); LYMPH % 13.2 % (22.0-35.0); MEAN CELL VOLUME 95.1 fl (80.0-105.0); MEAN CORPUSCULAR HEMOGLOBIN 30.4 pg (25.0-35.0); MEAN CORPUSCULAR HGB CONC 31.9 g/dl (31.0-37.0); MEAN PLATELET VOLUME 7.8 fl (7.0-11.0); MONO # 0.6 (0.1-0.6); MONO % 6.4 % (1.0-6.0); RED CELL DISTRIBUTION WIDTH 15.1 % (11.5-14.5); WHITE BLOOD COUNT 9.4 10^3/ul (4.5-11.0)
[2017-02-06 23:48] LABS: INR 0.94 (0.93-1.08); PARTIAL THROMBOPLASTIN TIME 28.4 Seconds (23.7-30.8)
[2017-02-06 23:53] LABS: HEMATOCRIT 23.5 % (42.0-52.0)
[2017-02-06 23:56] LABS: ALB/GLOB RATIO 1.1 (1.1-1.8); ALKALINE PHOSPHATASE 159 U/L (38-126); ALT/SGPT 44 U/L (7-56); AST/SGOT 63 U/L (17-59); BILIRUBIN,TOTAL 0.2 mg/dL (0.2-1.3); BLOOD UREA NITROGEN 17 mg/dL (7-21); CALCIUM 8.8 mg/dL (8.4-10.5); CARBON DIOXIDE 27 mmol/L (21-33); CHLORIDE 102 mmol/L (98-107); GFR AFRICAN-AMERICAN > 60; GLUCOSE,RANDOM 113 mg/dL (70-110); POTASSIUM 4.3 mmol/L (3.6-5.0); SODIUM 138 mmol/L (132-148); TOTAL PROTEIN 6.9 g/dL (5.8-8.3)
[2017-02-07] MEDS ORDERED: Sodium Chloride 0.9% 500 ML IV STA ×2 (00:49→01:44)
--- NOTE | 2017-02-07 00:55 | ED PDOC ---
Arrival/HPI - General Historian: Patient, Family - History of Present Illness Time/Duration: > week Symptom Onset: Gradual Symptom Course: Worsening Quality: Aching Severity Level: 5 <Kary Cespedes - Last Filed: 02/07/17 02:53> <EmelyDivya - Last Filed: 02/07/17 03:18> - General Chief Complaint: Lower Extremity Problem/Injury Time Seen by Provider: 02/06/17 23:10 - History of Present Illness Narrative History of Present Illness (Text): 02/07/17 00:45 66-year-old male Presents today with bilateral leg swelling- left greater than right. Swelling worsening over the past week. Patient had anterior and posterior approach back surgery on 01/18/17 and then one a week ago fell injuring the left hip. Patient states then he developed swelling to the left leg. Patient states he was taking Lovenox for 14 days and stopped 3 days ago. Patient denies chest pain or shortness of breath. Denies abdominal pain. No nausea or vomiting. pt denies abdominal pain. pts sister states that he has been having intermittent fevers. denies dizziness. no headaches. (Kary Cespedes) Past Medical History - Provider Review Nursing Documentation Reviewed: Yes - Travel History Have you recently traveled outside [place] w/in the past 3 mons?: No - Infectious Disease Hx of Infectious Diseases: None - Tetanus Immunization Tetanus Immunization: Unknown - Cardiac Hx Cardiac Disorders: Yes Hx Hypertension: Yes - Pulmonary Hx Respiratory Disorders: (SMOKED CIGARETTE H/O <PPD QUIT 40 YRS AGO) - Neurological Hx Neurological Disorder: No Hx Paralysis: No - HEENT Hx HEENT Disorder: Yes (reading glasses) - Renal Hx Renal Disorder: Yes (SELF CATH 4 X A DAY) Hx Neurogenic Bladder: Yes Other/Comment: PATIENT HAD LUMBAR AND CERVICAL SX-HAD NEUROGENIC BLADDER - - Endocrine/Metabolic Hx Endocrine Disorders: (BORDERLINE DM) - Hematological/Oncological Hx Blood Disorders: No Hx Blood Transfusions: No - Integumentary Other/Comment: ble discolorations - Musculoskeletal/Rheumatological Hx Musculoskeletal Disorders: Yes Other/Comment: cervical tube implaint due spinal fusion 03/2016 [email or web address] - Genitourinary/Gynecological Hx Genitourinary Disorders: Yes (URINARY RETENTION,BILATERAL HYDRONEPHROSIS) Hx Hematuria: Yes Other/Comment: retention, suprapubic cath insertion 07/18/14 - Psychiatric Hx Emotional Abuse: No Hx Physical Abuse: No Hx Substance Use: No - Surgical History Other/Comment: left knee sx, cervical spine sx 11/2011, lumbar spine sx 03/2012, cysto urethrogram bilateral stent insertion, colonoscopy 2013, suprapubic catheter insertion, cystotomy tube, and cystogram done today - Anesthesia Hx Anesthesia: Yes Hx Anesthesia Reactions: No Hx Malignant Hyperthermia: No - Suicidal Assessment Feels Threatened In Home Enviroment: No <Kary Cespedes - Last Filed: 02/07/17 02:53> Family/Social History - Physician Review Nursing Documentation Reviewed: Yes Family/Social History: Unknown Family HX Smoking Status: Former Smoker Hx Alcohol Use: No Hx Substance Use: No <Kary Cespedes - Last Filed: 02/07/17 02:53> Allergies/Home Meds <Kary Cespedes - Last Filed: 02/07/17 02:53> <Divya Han - Last Filed: 02/07/17 03:18> Allergies/Adverse Reactions: Allergies No Known Allergies Allergy (Unverified 06/16/16 23:28) Home Medications: Home Meds Medication Instructions Recorded Confirmed Ascorbic Acid [Vitamin C] 500 mg PO DAILY 02/06/17 02/06/17 Baclofen [Lioresal] 10 mg PO DAILY 02/06/17 02/06/17 Ferrous Sulfate [High Potency Iron] 65 mg PO DAILY 02/06/17 02/06/17 Gabapentin [Neurontin] 300 mg PO TID 02/06/17 02/06/17 Labetalol [Trandate] 100 mg PO BID 02/06/17 02/06/17 Metformin ER [Glucophage XR] 500 mg PO BID 02/06/17 02/06/17 Propylene Glycol/Peg 400 [Systane 1 drop OP PRN PRN 02/06/17 02/06/17 Ultra 0.4%-0.3% 10 ml] Sennosides [Senna] 17.2 mg PO HS 02/06/17 02/06/17 Simvastatin [Zocor] 10 mg PO DAILY 02/06/17 02/06/17 Valsartan [Diovan] 160 mg PO DAILY 02/06/17 02/06/17 amLODIPine [Norvasc] 10 mg PO DAILY 02/06/17 02/06/17 oxyCODONE/Acetaminophen [Percocet 1 tab PO Q6H PRN 02/06/17 02/06/17 5/325 mg Tab] Mirabegron [Myrbetriq] 50 mg PO HS 02/07/17 02/07/17 Review of Systems - Review of Systems Constitutional: Fevers. absent: Fatigue Respiratory: absent: SOB, Cough Cardiovascular: absent: Chest Pain, Palpitations Gastrointestinal: absent: Abdominal Pain, Constipation, Diarrhea, Nausea, Vomiting Genitourinary Male: absent: Dysuria, Frequency, Hematuria Musculoskeletal: Arthralgias (left leg pain/swelling. ), Back Pain. absent: Neck Pain Skin: Rash Neurological: absent: Headache, Dizziness Psychiatric: absent: Anxiety, Depression <Kary Cespedes - Last Filed: 02/07/17 02:53> Physical Exam Vital Signs Reviewed: Yes Temperature: Afebrile Blood Pressure: Normal Pulse: Regular Respiratory Rate: Normal Appearance: Positive for: Well-Appearing, Non-Toxic, Comfortable Pain Distress: None Mental Status: Positive for: Alert and Oriented X 3 - Systems Exam Head: Present: Atraumatic Mouth: Present: Moist Mucous Membranes Neck: Present: Normal Range of Motion Respiratory/Chest: Present: Clear to Auscultation, Good Air Exchange. No: Respiratory Distress, Accessory Muscle Use Cardiovascular: Present: Regular Rate and Rhythm. No: Tachycardic Abdomen: Present: Normal Bowel Sounds, Other (there is a large firm mass noted to the llq abdomen at anterior incision site. no erythema; no warmth. ). No: Tenderness, Distention, Peritoneal Signs Back: Present: Other (+ multiple surgical incisions without erythema or purulent discharge. ). No: CVA Tenderness, Midline Tenderness Upper Extremity: Present: Normal Inspection, Normal ROM Lower Extremity: Present: Edema, CALF TENDERNESS, NORMAL PULSES, Tenderness (b/ l lower leg edema with significant swelling to left leg from thigh to foot. sensation and distal pulses intact. cap refill <2. right ankle + minimal edema. no calf tenderness. ), Swelling, Neurovascularly Intact, Capillary Refill < 2 s. No: Normal Inspection, Erythema, Deformity Neurological: Present: GCS=15, Speech Normal Skin: Present: Warm, Dry Psychiatric: Present: Alert, Oriented x 3 <Kary Cespedes - Last Filed: 02/07/17 02:53> Vital Signs Temp Pulse Resp BP Pulse Ox 02/07/17 03:08 98.3 F 77 16 141/90 02/07/17 02:10 82 16 140/75 98 02/07/17 01:30 75 16 151/84 H 96 02/07/17 00:30 75 18 144/84 98 02/06/17 23:04 99.1 F 78 16 148/81 98 Medical Decision Making <Kary Cespedes - Last Filed: 02/07/17 02:53> <Divya Han - Last Filed: 02/07/17 03:18> ED Course and Treatment: 02/07/17 66yr old male with b/l leg swelling x 1 week. left greater than right. recent fall. left hip pain. s/p anterior and posterior approach back surgery 01/18/17. cbc; hgb;7.5 cmp: slightly elevated lfts bnp ; 520 UA; + nitrates, + leukocytes; pt with suprapubic catheter with bag; will send urine culture, cover with rocephin. cxr; wnl type/screen pt/inr; wnl ptt wnl venous duplex b/l lower legs NO dvt. left hip xrays with pelvis; no fx. EKG: NSR at 77b/m no st elevations, normal axis. normal intervals. pt given NS iv bolus pt with hgb 7.5 significant drop from 12/10/16 at 12. will transfuse 1 unit. consent for blood transfusion obtained. heme negative stools. pt with b/l leg swelling left greater than right; negative for dvt, negative chf exacerbation; pt with large firm mass noted to llq abdomen over anterior incision; ? hematoma. ? hematoma causing compression leading to LLE swelling vs thrombus. will get angio ct abd/pelvis. CT abd/pelvis angio r/o thrombus. case discussed with dr. covington; accepts admission. dr. covington would like Dr. George case discussed with residential recycle driver dr. MENDEZ. pt seen and evaluated by dr. han. 02/07/17 02:10 case signed out to dr. han pending CT results and final disposition. impression; anemia, leg swelling, UTI (Azoia,Kary T) EXAM: CT Abdomen and Pelvis With Intravenous Contrast FINDINGS: LIMITATIONS: Streak artifact from metallic hardware in the spine. Mild streak/ motion artifact. LOWER THORAX: Mild cardiomegaly. No infiltrate seen in the lung bases. VASCULATURE: AORTA: Atherosclerotic disease of the aorta. No evidence of abdominal aortic aneurysm or dissection. CELIAC TRUNK AND MESENTERIC ARTERIES: Atherosclerotic disease of the superior mesenteric artery, with no evidence of occlusion. RENAL ARTERIES: Atherosclerotic disease of the bilateral renal arteries, with no evidence of occlusion. ILIAC ARTERIES: Atherosclerotic disease of the bilateral iliac arteries, with no evidence of occlusion. INFERIOR VENA CAVA: IVC filter in place. ABDOMEN: LIVER: No acute abnormality of the liver identified. GALLBLADDER AND BILE DUCTS: Tiny gallstones. No CT evidence of acute cholecystitis. PANCREAS: No evidence of acute pancreatitis. SPLEEN: No acute abnormality of the spleen identified. ADRENALS: No acute abnormality of the adrenal glands identified. KIDNEYS AND URETERS: Moderate to severe left hydroureteronephrosis, as well as left renal enlargement and a delayed left nephrogram. The left hydroureter extends to the level of the upper pelvis. No definite causative obstructing stones are seen, although streak artifact from metallic hardware in the spine somewhat limits evaluation. Bilateral renal scarring. Incidental fluid density right renal lesion, measuring less than 10 mm. No further followup imaging is recommended for incidental lesions of this size, unless otherwise clinically indicated. STOMACH AND BOWEL: Retained stool noted throughout the colon. Bowel is otherwise unremarkable in appearance. No evidence of bowel obstruction. APPENDIX: Appendix is seen, and is within normal limits in appearance. PELVIS: BLADDER: Suprapubic catheter is in place. Small foci of air are seen in the bladder lumen. REPRODUCTIVE: No acute abnormality of the reproductive organs identified. ABDOMEN and PELVIS: INTRAPERITONEAL SPACE: No evidence of significant free fluid or free air. RETROPERITONEAL SPACE: A large, rounded cystic mass is seen in the left pelvis, which appears located in the left pelvic extraperitoneal/retroperitoneal space anteriorly and laterally. This measures 12 x 6.5 cm. It abuts the left distal ureter. It does not contain gas. There is a small amount of diffuse fluid in the nearby left pelvic retroperitoneal space. No evidence of retroperitoneal hemorrhage. BONES/JOINTS: Small bony defect seen in the left iliac bone anteriorly, a new finding, which could represent post operative change. Recommend clinical correlation. There is no evidence of diffuse lytic bony lesions. Extensive post operative changes of the spine. Bilateral metallic posterior carissa and screw devices are seen extending from from T11 through L1, and also from L5 through S1. Osteoarthritic changes of the hips bilaterally. SOFT TISSUES: Diffuse fluid in the subcutaneous fat of the back, which could represent either post operative or dependent fluid. There also appear to be recent postsurgical changes involving the left anterior pelvic wall. No evidence of a focal soft tissue fluid collection or hematoma. LYMPH NODES: No evidence of diffuse lymphadenopathy. IMPRESSION: - Large (12 x 6.5 cm) fluid collection in the left pelvic retroperitoneal space. This does not contain gas. It could represent a resolving hematoma or seroma, but cannot rule out a urinoma secondary to a left ureteral injury, as it abuts the left distal ureter. There is a small amount of nearby diffuse fluid in the left retroperitoneal space. Recommend clinical correlation. - Moderate to severe left hydroureteronephrosis, cause not identified. This could be due to a recently passed stone or a urinary tract infection. 02/07/17 03:15 Patient seen and examined. He is hemodynamically stable; exam is notable for the left pelvic mass that is also noted on CT. Hgb is significantly lower at 7.5; will transfuse. Patient is hemodynamically stable and may be admitted to [facility] (given drop in H/H) and will need surgical consult and likely interventional radiology. 02/07/17 03:18 PA had discussed case with Dr. Covington for admission to her service. (Divya Han) - Lab Interpretations Lab Results: 02/06/17 22:25 02/06/17 22:25 Lab Results 02/07/17 01:45: Blood Type Confirm O POSITIVE 02/07/17 01:00: Urine Color Yellow, Urine Appearance Clear, Urine pH 6.5, Ur Specific [place] <= 1.005, Urine Protein Negative, Urine Glucose (UA) Negative, Urine Ketones Negative, Urine Blood Small H, Urine Nitrate Positive H, Urine Bilirubin Negative, Urine Urobilinogen 0.2, Ur Leukocyte Esterase Large H, Urine RBC 0 - 2, Urine WBC 5 - 10, Ur Epithelial Cells 0 - 2, Urine Bacteria Mod 02/07/17 00:50: Blood Type O POSITIVE, Antibody Screen Negative, Crossmatch See Detail, BBK History Checked No verified bt 02/06/17 22:25: WBC 9.4, RBC 2.47 L, Hgb 7.5 L D, Hct 23.5 L, MCV 95.1, MCH 30.4 , MCHC 31.9, RDW 15.1 H, Plt Count 542 H, MPV 7.8, Gran % 78.1 H, Lymph % (Auto ) 13.2 L, [place] % (Auto) 6.4 H, Eos % (Auto) 2.1, Baso % (Auto) 0.2, Gran # 7.34 H, Lymph # 1.2, [place] # 0.6, Eos # 0.2, Baso # 0.02 02/06/17 22:25: Sodium 138, Potassium 4.3, Chloride 102, Carbon Dioxide 27, Anion Gap 13, BUN 17, Creatinine 1.2, Est GFR ( Amer) > 60, Est GFR (Non- Af Amer) > 60, Random Glucose 113 H, Calcium 8.8, Total Bilirubin 0.2, AST 63 H , ALT 44, Alkaline Phosphatase 159 H, NT-Pro-B Natriuret Pep 520 H, Total Protein 6.9, Albumin 3.6, Globulin 3.2, Albumin/Globulin Ratio 1.1 02/06/17 22:25: PT 10.2, INR 0.94, APTT 28.4 - RAD Interpretation Radiology Orders: 02/06/17 23:12 DUPLEX LOWER EXTRM VEIN BILAT [US] Stat 02/06/17 23:20 CHEST ONE VIEW [RAD] Stat Hip Left [HIP MIN 2V W/ PELVIS LT] [RAD] Stat 02/07/17 00:47 ANGIO ABDOMEN & PELVIS W/CONT [CT] Stat - Medication Orders Current Medication Orders: Discontinued Medications Sodium Chloride (Sodium Chloride 0.9%) 500 mls @ 999 mls/hr IV .Q31M STA Stop: 02/07/17 01:19 Last Admin: 02/07/17 01:06 Dose: 999 mls/hr eMAR Start Stop Document 02/07/17 01:06 YP (Rec: 02/07/17 01:06 YP [id number]) Intravenous Solution Start Date 02/07/17 Start Time 01:06 End Date 02/07/17 End time 01:36 Total Infusion Time 30 Ceftriaxone Sodium (Rocephin 1 Gram Ivpb) 1 gm in 100 mls @ 200 mls/hr IVPB STAT STA PRN Reason: Protocol Stop: 02/07/17 02:13 Last Admin: 02/07/17 02:10 Dose: 200 mls/hr eMAR Start Stop Document 02/07/17 02:10 YP (Rec: 02/07/17 02:11 YP [id number]) Intravenous Solution Start Date 02/07/17 Start Time 02:11 End Date 02/07/17 End time 02:41 Total Infusion Time 30 Sodium Chloride (Sodium Chloride 0.9%) 500 mls @ 999 mls/hr IV .Q31M STA Stop: 02/07/17 02:14 Last Admin: 02/07/17 01:46 Dose: 999 mls/hr eMAR Start Stop Document 02/07/17 01:46 YP (Rec: 02/07/17 01:46 YP [id number]) Intravenous Solution Start Date 02/07/17 Start Time 01:46 End Date 02/07/17 End time 02:16 Total Infusion Time 30 Oxycodone/Acetaminophen (Percocet 5/325 Mg Tab) 1 tab PO STAT STA Stop: 02/07/17 02:58 Last Admin: 02/07/17 03:11 Dose: 1 tab MAR Pain Assessment Document 02/07/17 03:11 YP (Rec: 02/07/17 03:12 YP [id number]) Pain Reassessment Is this a pain reassessment? Yes Sleep Is patient sleeping during reassessment? No Presence of Pain Presence of Pain Yes - PA / EMPLOYMENT LEGAL ASSISTANT / Resident Statement MD/DO has reviewed & agrees with the documentation as recorded. MD/DO has examined the patient and agrees with the treatment plan. <Divya Han - Last Filed: 02/07/17 03:18> Disposition/Present on Arrival - Present on Arrival Any Indicators Present on Arrival: Yes History of DVT/PE: No History of Uncontrolled Diabetes: No Urinary Catheter: Yes (suprapubic catheter) History of Decub. Ulcer: No History Surgical Site Infection Following: None - Disposition Have Diagnosis and Disposition been Completed?: Yes Disposition Time: 01:27 Patient Plan: Admission <Kary Cespedes - Last Filed: 02/07/17 02:53> - Disposition Patient Plan: Admission <Divya Han - Last Filed: 02/07/17 03:18> - Disposition Diagnosis: Anemia, Left leg swelling, UTI (urinary tract infection), Retroperitoneal fluid collection Disposition: HOSPITALIZED Patient Problems: Current Active Problems Problem Status Onset Anemia Acute Left leg swelling Acute UTI (urinary tract infection) Acute Condition: FAIR Referrals: Sánchez Mcgowan MD [Primary Care Provider] - Follow up with primary Forms: [employer] (Togolese)
[2017-02-07 01:22] LABS: PH,URINE 6.5 (4.7-8.0); URINE BILIRUBIN NEGATIVE (NEGATIVE); URINE BLOOD SMALL (NEGATIVE); URINE GLUCOSE (UA) NEGATIVE (NEGATIVE); URINE KETONE NEGATIVE (NEGATIVE); URINE LEUKOCYTE ESTERASE LARGE Leu/uL (NEGATIVE); URINE PROTEIN NEGATIVE mg/dL (<30 mg/dL); URINE UROBILINOGEN 0.2 E.U./dL (<1 E.U./dL)
[2017-02-07 01:38] LABS: URINE APPEARANCE CLEAR (CLEAR); URINE COLOR YELLOW (YELLOW)
[2017-02-07 01:40] LABS: URINE RBC 0 - 2 /hpf (0-2)
[2017-02-07 01:41] LABS: URINE BACTERIA MOD (NEG); URINE EPITHELIAL CELLS 0 - 2 /hpf (0-5)
[2017-02-07] MEDS ORDERED: cefTRIAXone 1 gm 1 GM/100 ML BAG IVPB STA (01:44)
[2017-02-07] MEDS ORDERED: Oxycodone/Acetaminophen 5/325 mg Tab PO STA (02:57)
--- NOTE | 2017-02-07 03:01 | CT ---
EXAM: CT Abdomen and Pelvis With Intravenous Contrast EXAM DATE/TIME: 02/07/2017 12:47 AM CLINICAL HISTORY: 66 years old, male; Signs and symptoms; Other: Lt leg swelling; Prior surgery; Surgery type: Cystogram, lspine; Additional info: Recent back surgery/lle swelling. R/O thrombus TECHNIQUE: Axial computed tomography images of the abdomen and pelvis with intravenous contrast during the arterial phase of enhancement. All CT scans at this facility use one or more dose reduction techniques, viz.: automated exposure control; ma/kV adjustment per patient size (including targeted exams where dose is matched to indication; i.e. head); or iterative reconstruction technique. CONTRAST: 146 mL of omni 350 administered intravenously. COMPARISON: Prior CT abdomen and pelvis of 12/10/2016 FINDINGS: LIMITATIONS: Streak artifact from metallic hardware in the spine. Mild streak/motion artifact. LOWER THORAX: Mild cardiomegaly. No infiltrate seen in the lung bases. VASCULATURE: AORTA: Atherosclerotic disease of the aorta. No evidence of abdominal aortic aneurysm or dissection. CELIAC TRUNK AND MESENTERIC ARTERIES: Atherosclerotic disease of the superior mesenteric artery, with no evidence of occlusion. RENAL ARTERIES: Atherosclerotic disease of the bilateral renal arteries, with no evidence of occlusion. ILIAC ARTERIES: Atherosclerotic disease of the bilateral iliac arteries, with no evidence of occlusion. INFERIOR VENA CAVA: IVC filter in place. ABDOMEN: LIVER: No acute abnormality of the liver identified. GALLBLADDER AND BILE DUCTS: Tiny gallstones. No CT evidence of acute cholecystitis. PANCREAS: No evidence of acute pancreatitis. SPLEEN: No acute abnormality of the spleen identified. ADRENALS: No acute abnormality of the adrenal glands identified. KIDNEYS AND URETERS: Moderate to severe left hydroureteronephrosis, as well as left renal enlargement and a delayed left nephrogram. The left hydroureter extends to the level of the upper pelvis. No definite causative obstructing stones are seen, although streak artifact from metallic hardware in the spine somewhat limits evaluation. Bilateral renal scarring. Incidental fluid density right renal lesion, measuring less than 10 mm. No further followup imaging is recommended for incidental lesions of this size, unless otherwise clinically indicated. STOMACH AND BOWEL: Retained stool noted throughout the colon. Bowel is otherwise unremarkable in appearance. No evidence of bowel obstruction. APPENDIX: Appendix is seen, and is within normal limits in appearance. PELVIS: BLADDER: Suprapubic catheter is in place. Small foci of air are seen in the bladder lumen. REPRODUCTIVE: No acute abnormality of the reproductive organs identified. ABDOMEN and PELVIS: INTRAPERITONEAL SPACE: No evidence of significant free fluid or free air. RETROPERITONEAL SPACE: A large, rounded cystic mass is seen in the left pelvis, which appears located in the left pelvic extraperitoneal/retroperitoneal space anteriorly and laterally. This measures 12 x 6.5 cm. It abuts the left distal ureter. It does not contain gas. There is a small amount of diffuse fluid in the nearby left pelvic retroperitoneal space. No evidence of retroperitoneal hemorrhage. BONES/JOINTS: Small bony defect seen in the left iliac bone anteriorly, a new finding, which could represent post operative change. Recommend clinical correlation. There is no evidence of diffuse lytic bony lesions. Extensive post operative changes of the spine. Bilateral metallic posterior carissa and screw devices are seen extending from from T11 through L1, and also from L5 through S1. Osteoarthritic changes of the hips bilaterally. SOFT TISSUES: Diffuse fluid in the subcutaneous fat of the back, which could represent either post operative or dependent fluid. There also appear to be recent postsurgical changes involving the left anterior pelvic wall. No evidence of a focal soft tissue fluid collection or hematoma. LYMPH NODES: No evidence of diffuse lymphadenopathy. IMPRESSION: - Large (12 x 6.5 cm) fluid collection in the left pelvic retroperitoneal space. This does not contain gas. It could represent a resolving hematoma or seroma, but cannot rule out a urinoma secondary to a left ureteral injury, as it abuts the left distal ureter. There is a small amount of nearby diffuse fluid in the left retroperitoneal space. Recommend clinical correlation. - Moderate to severe left hydroureteronephrosis, cause not identified. This could be due to a recently passed stone or a urinary tract infection. - See above for remaining findings.
[2017-02-07] MEDS ORDERED: Sodium Chloride 0.9% 1,000 ML IV SCH (04:00)
--- NOTE | 2017-02-07 04:23 | CP.PCM.CON ---
History of Present Illness - History of Present Illness History of Present Illness: surgery 66M w recent spine surgery on 01/18 came to ED with b/l lower extremity swelling. Surgery is consulted to evaluate for L retroperitoneal hematoma/seroma /Urinoma. PT had spine surgery on 01/18 at [facility] with anterior and posterior incisions. Shortly after being discharged, pt noticed b/l LE swelling and mass on the L lower abd. It is getting larger. Pt was on Lovenox SC 40mg daily for 14 days since the surgery. Last dose was 2 days ago. Denies F/C/N/V/D/ CP/SOB/hematuria/hematochezia/hematemesis/abd pain/dizziness/weakness. Pt has suprapubic urinary cathater for urogenic bladder. CT of the abd shows 12x7cm L retroperitoneal hematoma/seroma collection. Possible urinoma with L hydroureteronephrosis. Hgb is 7. Pt is being transfused. PMH: neurogenic bladder, PE, DM, HTN PSH: suprpubic cath, spine sx, IVC filter Review of Systems - Review of Systems Review of Systems: See hpi Past Patient History - Infectious Disease Hx of Infectious Diseases: None - Tetanus Immunizations Tetanus Immunization: Unknown - Past Social History Smoking Status: Former Smoker - CARDIAC Hx Cardiac Disorders: Yes Hx Hypertension: Yes - PULMONARY Hx Respiratory Disorders: (SMOKED CIGARETTE H/O <PPD QUIT 40 YRS AGO) - NEUROLOGICAL Hx Neurological Disorder: No Hx Paralysis: No - HEENT Hx HEENT Problems: Yes (reading glasses) - RENAL Hx Chronic Kidney Disease: Yes (SELF CATH 4 X A DAY) Hx Neurogenic Bladder: Yes Other/Comment: PATIENT HAD LUMBAR AND CERVICAL SX-HAD NEUROGENIC BLADDER - - ENDOCRINE/METABOLIC Hx Endocrine Disorders: (BORDERLINE DM) - HEMATOLOGICAL/ONCOLOGICAL Hx Blood Disorders: No Hx Blood Transfusions: No - INTEGUMENTARY Other/Comment: ble discolorations - MUSCULOSKELETAL/RHEUMATOLOGICAL Hx Musculoskeletal Disorders: Yes Other/Comment: cervical tube implaint due spinal fusion 03/2016 [facility] - GENITOURINARY/GYNECOLOGICAL Hx Genitourinary Disorders: Yes (URINARY RETENTION,BILATERAL HYDRONEPHROSIS) Hx Hematuria: Yes Other/Comment: retention, suprapubic cath insertion 07/18/14 - PSYCHIATRIC Hx Emotional Abuse: No Hx Physical Abuse: No Hx Substance Use: No - SURGICAL HISTORY Other/Comment: left knee sx, cervical spine sx 11/2011, lumbar spine sx 03/2012, cysto urethrogram bilateral stent insertion, colonoscopy 2013, suprapubic catheter insertion, cystotomy tube, and cystogram done today - ANESTHESIA Hx Anesthesia: Yes Hx Anesthesia Reactions: No Hx Malignant Hyperthermia: No Meds Allergies/Adverse Reactions: Allergies Allergy/AdvReac Type Severity Reaction Status Date / Time No Known Allergies Allergy Unverified 06/16/16 23:28 - Medications Medications: Current Medications Acetaminophen (Tylenol 325mg Tab) 650 mg PO Q4 PRN PRN Reason: Fever >100.4 F Hydromorphone HCl (Dilaudid) 0.5 mg IVP Q4H PRN PRN Reason: Pain, severe (8-10) Sodium Chloride (Sodium Chloride 0.9%) 1,000 mls @ 100 mls/hr IV .Q10H [facility] Last Admin: 02/07/17 04:08 Dose: 100 mls/hr Physical Exam - Constitutional Appears: No Acute Distress - Head Exam Head Exam: ATRAUMATIC, NORMAL INSPECTION, NORMOCEPHALIC - Eye Exam Eye Exam: EOMI, Normal appearance, PERRL Pupil Exam: NORMAL ACCOMODATION, PERRL - ENT Exam ENT Exam: Mucous Membranes Moist, Normal Exam - Neck Exam Neck exam: Positive for: Normal Inspection - Respiratory Exam Respiratory Exam: Clear to Auscultation Bilateral, NORMAL BREATHING PATTERN - Cardiovascular Exam Cardiovascular Exam: REGULAR RHYTHM, +S1, +S2 - GI/Abdominal Exam GI & Abdominal Exam: Mass, Soft, Tenderness. absent: Distended, Firm, Guarding , Hernia, Pulsatile Mass, Rebound, Rigid Additional comments: LLE has 10x10 cm palpable mass over healing incision . Mild skin discoloration. Mild eccymosis. Indurated. Mild TTP. - Exam Additional comments: Suprapubic catheter. no signs of infection on the skin. - Extremities Exam Extremities exam: Positive for: pedal edema, tenderness, pedal pulses present - Back Exam Back exam: NORMAL INSPECTION - Neurological Exam Neurological exam: Alert, CN II-XII Intact, Oriented x3, Reflexes Normal - Psychiatric Exam Psychiatric exam: Normal Affect, Normal Mood - Skin Skin Exam: Dry, Intact, Warm Results - Vital Signs Recent Vital Signs: Last Vital Signs Temp 98.7 F 02/07/17 04:08 Pulse 66 02/07/17 04:08 Resp 14 02/07/17 04:08 BP 137/80 02/07/17 04:08 Pulse Ox 98 02/07/17 02:10 - Labs Result Diagrams: 02/06/17 22:25 02/06/17 22:25 Labs: Laboratory Results - last 24 hr 02/06/17 02/06/17 02/06/17 22:25 22:25 22:25 WBC 9.4 RBC 2.47 L Hgb 7.5 L D Hct 23.5 L MCV 95.1 MCH 30.4 MCHC 31.9 RDW 15.1 H Plt Count 542 H MPV 7.8 Gran % 78.1 H Lymph % (Auto) 13.2 L Craven % (Auto) 6.4 H Eos % (Auto) 2.1 Baso % (Auto) 0.2 Gran # 7.34 H Lymph # 1.2 Craven # 0.6 Eos # 0.2 Baso # 0.02 PT 10.2 INR 0.94 APTT 28.4 Sodium 138 Potassium 4.3 Chloride 102 Carbon Dioxide 27 Anion Gap 13 BUN 17 Creatinine 1.2 Est GFR ( Amer) > 60 Est GFR (Non-Af Amer) > 60 Random Glucose 113 H Calcium 8.8 Total Bilirubin 0.2 AST 63 H ALT 44 Alkaline Phosphatase 159 H NT-Pro-B Natriuret Pep 520 H Total Protein 6.9 Albumin 3.6 Globulin 3.2 Albumin/Globulin Ratio 1.1 Urine Color Urine Appearance Urine pH Ur Specific [place] Urine Protein Urine Glucose (UA) Urine Ketones Urine Blood Urine Nitrate Urine Bilirubin Urine Urobilinogen Ur Leukocyte Esterase Urine RBC Urine WBC Ur Epithelial Cells Urine Bacteria Blood Type Blood Type Confirm Antibody Screen Crossmatch BBK History Checked 02/07/17 02/07/17 02/07/17 00:50 01:00 01:45 WBC RBC Hgb Hct MCV MCH MCHC RDW Plt Count MPV Gran % Lymph % (Auto) Craven % (Auto) Eos % (Auto) Baso % (Auto) Gran # Lymph # Craven # Eos # Baso # PT INR APTT Sodium Potassium Chloride Carbon Dioxide Anion Gap BUN Creatinine Est GFR ( Amer) Est GFR (Non-Af Amer) Random Glucose Calcium Total Bilirubin AST ALT Alkaline Phosphatase NT-Pro-B Natriuret Pep Total Protein Albumin Globulin Albumin/Globulin Ratio Urine Color Yellow Urine Appearance Clear Urine pH 6.5 Ur Specific [place] <= 1.005 Urine Protein Negative Urine Glucose (UA) Negative Urine Ketones Negative Urine Blood Small H Urine Nitrate Positive H Urine Bilirubin Negative Urine Urobilinogen 0.2 Ur Leukocyte Esterase Large H Urine RBC 0 - 2 Urine WBC 5 - 10 Ur Epithelial Cells 0 - 2 Urine Bacteria Mod Blood Type O POSITIVE Blood Type Confirm O POSITIVE Antibody Screen Negative Crossmatch See Detail BBK History Checked No verified bt Assessment & Plan - Assessment and Plan (Free Text) Assessment: L retroperitoneal hematoma -IR drainage -NPO -monitor VS -Monitor H/H -Transfuse PRN sp 1 PRBC -We will closely follow Will MARLENE George
[2017-02-07] MEDS: HYDROmorphone 0.5 mg/0.5 ml ISec IVP PRN ×4 (05:11→23:48)
--- NOTE | 2017-02-07 07:52 | PCM.URO ---
Urology Progress Note - Objective Lab Studies: Reviewed (further gu plans to follow thanks for gu consult) Intake & Output: Intake & Output 02/06/17 02/07/17 02/07/17 18:59 06:59 18:59 Intake Total 325 Output Total 725 Balance -400 Weight 175 lb Intake: Blood Product 325 Red Blood Cells Cpd As1 325 Lr Unit [id number] Output: Urine 725 Other: Voiding Method Indwelling Catheter Vital Signs: Vital Signs - 24 hr 02/07/17 02/07/17 02/07/17 03:08 03:23 04:08 Temperature 98.3 F 98.4 F 98.7 F Pulse Rate 77 76 66 Respiratory 16 16 14 Rate Blood Pressure 141/90 148/86 137/80 02/07/17 02/07/17 05:03 06:19 Temperature 98.1 F 98.1 F Pulse Rate 70 69 Respiratory 18 18 Rate Blood Pressure 146/86 143/77
--- NOTE | 2017-02-07 08:25 | RAD ---
PROCEDURE: Left Hip and pelvis X-ray Radiographs. HISTORY: hip pain COMPARISON: None. FINDINGS: BONES: Normal. No fracture. JOINTS: Normal. SOFT TISSUES: Normal. OTHER FINDINGS: Hardware is seen in the lower lumbar spine and sacrum IMPRESSION: No acute findings
--- NOTE | 2017-02-07 08:26 | RAD ---
PROCEDURE: CHEST RADIOGRAPH, 1 VIEW HISTORY: back surgery COMPARISON: 09/22/2015 FINDINGS: LUNGS: Clear. PLEURA: No pneumothorax or pleural fluid seen. CARDIOVASCULAR: Normal. OSSEOUS STRUCTURES: No significant abnormalities. VISUALIZED UPPER ABDOMEN: Normal. OTHER FINDINGS: None. IMPRESSION: No active disease.
--- NOTE | 2017-02-07 08:29 | CP.PCM.PN ---
<IshmaeljayeJosh melissa - Last Filed: 02/07/17 08:24> Subjective - Date & Time of Evaluation Date of Evaluation: 02/07/17 Time of Evaluation: 08:24 - Subjective Subjective: Surgery Progress Note HPI: Patient seen and examined at bedside. Complaining of mild abdominal pain. No other complaints at this time. Denies N/V/D/F/CP/SOB Objective - Vital Signs/Intake and Output Vital Signs (last 24 hours): Temp Pulse Resp BP Pulse Ox 98.1 F 69 18 143/77 98 02/07/17 06:19 02/07/17 06:19 02/07/17 06:19 02/07/17 06:19 02/07/17 02:10 Intake and Output: 02/07/17 02/07/17 06:59 18:59 Intake Total 325 Output Total 725 Balance -400 - Medications Medications: Current Medications Acetaminophen (Tylenol 325mg Tab) 650 mg PO Q4 PRN PRN Reason: Fever >100.4 F Hydromorphone HCl (Dilaudid) 0.5 mg IVP Q4H PRN PRN Reason: Pain, severe (8-10) Last Admin: 02/07/17 05:11 Dose: 0.5 mg Sodium Chloride (Sodium Chloride 0.9%) 1,000 mls @ 100 mls/hr IV .Q10H [facility] Last Admin: 02/07/17 04:08 Dose: 100 mls/hr - Labs Labs: PT 10.2 Seconds (9.9-11.8) 02/06/17 22:25 INR 0.94 (0.93-1.08) 02/06/17 22:25 APTT 28.4 Seconds (23.7-30.8) 02/06/17 22:25 - Constitutional Appears: Well, Non-toxic, No Acute Distress - Head Exam Head Exam: ATRAUMATIC, NORMAL INSPECTION, NORMOCEPHALIC - Eye Exam Eye Exam: EOMI Pupil Exam: NORMAL ACCOMODATION - ENT Exam ENT Exam: Mucous Membranes Moist - Respiratory Exam Respiratory Exam: Clear to Ausculation Bilateral, NORMAL BREATHING PATTERN - Cardiovascular Exam Cardiovascular Exam: REGULAR RHYTHM - GI/Abdominal Exam GI & Abdominal Exam: Soft, Tenderness (mild tenderness to palpation in the LLQ) , Normal Bowel Sounds. absent: Distended - Neurological Exam Neurological Exam: Alert, Awake, Oriented x3 - Psychiatric Exam Psychiatric exam: Normal Affect, Normal Mood - Skin Skin Exam: Dry, Intact, Normal Color, Warm Assessment and Plan - Assessment and Plan (Free Text) Assessment: 66M w/LLQ Hematoma Plan: * F/U Uro (Nilesh Ashley reccs) * F/U IR possible intervention * Further reccs per Dr. Ariel Moon PGY1 <Eden Simmons - Last Filed: 02/07/17 13:12> Objective - Vital Signs/Intake and Output Vital Signs (last 24 hours): Temp Pulse Resp BP Pulse Ox 99.2 F 72 19 148/84 98 02/07/17 12:00 02/07/17 12:00 02/07/17 12:00 02/07/17 12:12 02/07/17 02:10 Intake and Output: 02/07/17 02/07/17 06:59 18:59 Intake Total 325 Output Total 725 Balance -400 - Medications Medications: Current Medications Acetaminophen (Tylenol 325mg Tab) 650 mg PO Q4 PRN PRN Reason: Fever >100.4 F Amlodipine Besylate (Norvasc) 10 mg PO DAILY [facility] Last Admin: 02/07/17 12:12 Dose: 10 mg Baclofen (Lioresal) 10 mg PO DAILY [facility] Last Admin: 02/07/17 12:12 Dose: 10 mg Gabapentin (Neurontin) 300 mg PO TID [facility] PRN Reason: Protocol Last Admin: 02/07/17 12:12 Dose: 300 mg Hydromorphone HCl (Dilaudid) 0.5 mg IVP Q4H PRN PRN Reason: Pain, severe (8-10) Last Admin: 02/07/17 10:45 Dose: 0.5 mg Ceftriaxone Sodium (Rocephin 1 Gram Ivpb) 1 gm in 100 mls @ 100 mls/hr IVPB DAILY [facility] PRN Reason: Protocol Labetalol HCl (Trandate) 100 mg PO BID [facility] Last Admin: 02/07/17 12:12 Dose: 100 mg Metformin HCl (Glucophage Xr) 500 mg PO BID [facility] Last Admin: 02/07/17 12:20 Dose: Not Given - Labs Labs: 02/07/17 09:20 02/07/17 09:20 PT 10.2 Seconds (9.9-11.8) 02/06/17 22:25 INR 0.94 (0.93-1.08) 02/06/17 22:25 APTT 28.4 Seconds (23.7-30.8) 02/06/17 22:25 Assessment and Plan - Assessment and Plan (Free Text) Plan: monitor H/H q6hr for expansion of hematoma. Transfuse PRN Monitor VS
[2017-02-07 09:32] LABS: BASO # 0.02 K/mm3 (0.0-2.0); BASO % 0.2 % (0.0-3.0); EOS # 0.2 (0.0-0.7); EOS % 2.2 % (1.5-5.0); GRAN # 6.52 (1.4-6.5); GRAN % 78.4 % (50.0-68.0); HEMATOCRIT 25.6 % (42.0-52.0); LYMPH # 1.2 (1.2-3.4); LYMPH % 14.5 % (22.0-35.0); MEAN CELL VOLUME 93.4 fl (80.0-105.0); MEAN CORPUSCULAR HEMOGLOBIN 29.6 pg (25.0-35.0); MEAN CORPUSCULAR HGB CONC 31.6 g/dl (31.0-37.0); MEAN PLATELET VOLUME 7.6 fl (7.0-11.0); MONO # 0.4 (0.1-0.6); MONO % 4.7 % (1.0-6.0); RED CELL DISTRIBUTION WIDTH 15.5 % (11.5-14.5); WHITE BLOOD COUNT 8.3 10^3/ul (4.5-11.0)
[2017-02-07 10:19] LABS: ALB/GLOB RATIO 1.1 (1.1-1.8); ALKALINE PHOSPHATASE 144 U/L (38-126); ALT/SGPT 49 U/L (7-56); AST/SGOT 56 U/L (17-59); BILIRUBIN,TOTAL 0.3 mg/dL (0.2-1.3); BLOOD UREA NITROGEN 13 mg/dL (7-21); CALCIUM 8.8 mg/dL (8.4-10.5); CARBON DIOXIDE 28 mmol/L (21-33); CHLORIDE 105 mmol/L (98-107); GFR AFRICAN-AMERICAN > 60; GLUCOSE,RANDOM 95 mg/dL (70-110); POTASSIUM 4.5 mmol/L (3.6-5.0); SODIUM 141 mmol/L (132-148); TOTAL PROTEIN 6.5 g/dL (5.8-8.3)
--- NOTE | 2017-02-07 11:41 | CARD ---
APPROVED REPORT EKG Measurement Heart [id number] <Conclusion> Poor data quality, interpretation may be adversely affected Normal sinus rhythm Normal ECG
[2017-02-07] MEDS ORDERED: Midazolam 2 MG/2 ML VIAL ONE (15:51)
[2017-02-07] MEDS ORDERED: Oxycodone/Acetaminophen 5/325 mg Tab PO PRN (17:56)
[2017-02-07] MEDS: cefTRIAXone 1 gm 1 GM/100 ML BAG IVPB SCH (18:00)
--- NOTE | 2017-02-07 18:57 | CON ---
DATE: 02/07/2017 GENITOURINARY CONSULTATION CHIEF COMPLAINT: Neurogenic bladder, status post back surgery. HISTORY OF PRESENT ILLNESS: The patient is well-known to me. I see him monthly in the office for a change of his suprapubic tube. He is a 66-year-old and underwent complicated back surgery approximately on 01/18/2017. He was in the hospital for 5 days and he was discharged. While at home, he had his nighttime get caught and he fell. He was brought to the ER and was seen to have a left retroperitoneal hematoma, possible seroma. His urine is draining clear. There is no leakage, no hematuria and he has had no trouble with his suprapubic tube. The reason for the suprapubic tube is a hyperactive neurogenic bladder and he has been more comfortable since it has been placed. FAMILY HISTORY: Noncontributory. SOCIAL HISTORY: He does not smoke. He is a former smoker. REVIEW OF SYMPTOMS: Currently, no symptoms referable to the head, eyes, ears, nose, or throat. No cardiac or respiratory symptoms. No symptoms referable to the GI tract. He does complain of some edema of his legs. His is . He has no psychiatric symptoms. PHYSICAL EXAMINATION: VITAL SIGNS: He is afebrile, pulse 69, blood pressure 143/77, and respirations 18. HEENT: Normocephalic. Sclerae clear. Conjunctivae noninjected. NECK: No CVA pain. SKIN: He has fresh incisions with some ecchymotic areas. GENITOURINARY: The suprapubic tube is draining well with no leakage. The urine is clear. GENITALIA: Unremarkable. EXTREMITIES: He does have 2+ pedal edema. LABORATORY WORK: Shows white count 8,300 and hemoglobin is 8.1. His creatinine is 1.1 with a BUN of 13. Coags, his INR is 0.94. PLAN: The patient requires no urologic intervention at this time, just make sure his suprapubic tube is anchored to his skin to avoid traction from the bag on the insertion of the suprapubic tube. Dakota Pineda MD
[2017-02-07] MEDS: Sodium Chloride 0.45% 1,000 ML IV SCH (19:49)
--- NOTE | 2017-02-07 19:57 | US ---
HISTORY: Leg pain and swelling. Evaluate for DVT PHYSICIAN(S): Jewel Schaefer MD. TECHNIQUE: Duplex sonography and color-flow Doppler with graded compression were used to evaluate the deep venous systems of both lower extremities. FINDINGS: The visualized deep venous systems of both lower extremities are sonographically normal and compressible. Normal wave forms and augmentation are seen. There is no sonographic evidence for deep venous thrombosis in the visualized segments of both lower extremities. IMPRESSION: No sonographic evidence for deep venous thrombosis in the visualized segments of both lower extremities.
--- NOTE | 2017-02-07 20:07 | HP ---
HISTORY OF PRESENT ILLNESS: The patient is a 66-year-old, known to me from multiple previous admissions, history taken by the patient's sister who is by the bedside stating that on 01/18/2017, the patient was having a lot of back problems, so he was operated by a spine surgeon in [facility]. She says the spinal fusion did not work, so this was revised on 01/18/2017 and he was discharged home on 01/24/2017. He was discharged home on Lovenox. According to sister on 01/24/2017, he lost his balance and he fell. On 01/26/2017, he respiked fever, he reported to [facility] surgeon who advised him to continue current medication. He continued on Lovenox. The patient was seen by surgeon on 02/01/2017. He was found to have hematoma and he was told that it is normal in his situation. The patient stated he is having numbness and pain in his left leg. He denies any nausea or vomiting. No fever or chills. PAST MEDICAL HISTORY: Significant for: 1. Hypertension. 2. Hyperlipidemia. 3. History of lumbar cervical surgeries resulting in a neurogenic bladder and for the same reason, he has suprapubic catheter that is indwelling. 4. Borderline non-insulin dependent diabetes. ALLERGIES: HE IS ALLERGIC TO PLAVIX. SOCIAL HISTORY: He lives with his family. There is history of smoking and socially drinking. MEDICATIONS AT HOME: He is on 50 mg at bedtime, Percocet as needed, valsartan 160 mg daily, ascorbic acid, senna, MiraLax, Zocor 10 mg daily, labetalol, metformin 500 mg b.i.d., ferrous sulphate 65 mg daily, amlodipine 10 mg daily, Neurontin 300 mg t.i.d., diclofenac 10 mg daily. REVIEW OF SYSTEMS: Significant for left leg numbness and pain; however, he is able to move all extremities, upper and lower. PHYSICAL EXAMINATION GENERAL: The patient is awake, alert, oriented, communicative. VITAL SIGNS: Temperature 99.2, pulse 72, respirations 19, and blood pressure 148/84. LUNGS: Bilateral fair airflow. No rhonchi or crackles. HEART: S1 and S2, audible. ABDOMEN: Soft. He has a lump in his left lower quadrant area. EXTREMITIES: Bilateral legs, he has +1 edema on the right extremity and +2 on the left lower extremity. He is able to bend and flex his left knee as well as the right leg. LABORATORY DATA: WBC is 8.3, hemoglobin 8.1, hematocrit 21.6, and platelets of 460. PT/PTT 10.1 and 0.94. Chemistry: Sodium 141, potassium 4.5, chloride 105, CO2 of 28, BUN 13, creatinine 1.1, and blood sugar 195. Alkaline phosphatase is 144. Urinalysis is positive for nitrites and large leukocytes. IMAGING: He had a CT angiogram that shows a large rounded cystic mass in the left pelvis that is located in the left pelvic extraperitoneal, retroperitoneal space and deviating laterally at -12 to 6.5 cm, it is sitting on the left distal ureter, it does not contain gas. There is small amount of diffuse fluid in the nearby left pelvic retroperitoneal space. No evidence of retroperitoneal hemorrhage. ASSESSMENT: 1. Large fluid collection in the left pelvic retroperitoneal space, does not contain gas, consistent with hematoma versus seroma. 2. Recent spine surgery involving carissa placement, spinal fusion, and screw placement. 3. Non-insulin dependent diabetes. 4. Hypertension. 5. History of neurogenic bladder and have indwelling catheter. PLAN: He has been started on IV antibiotic. He was given blood transfusion. He will be given one more pack, one pack of RBC's. We will do serial CBC's. I will order for CT scan of his lumbosacral spine. Analgesic as needed. Boyd Covington MD
--- NOTE | 2017-02-07 20:22 | CT ---
PROCEDURE: CT-guided left retroperitoneal abscess drainage. HISTORY: Recent back surgery. Large left retroperitoneal collection. Possible abscess. Left hydronephrosis. Possible urinoma. PHYSICIAN(S): Jewel Schaefer MD. TECHNIQUE: The relative risks and indications for the procedure were explained to the patient and his sister and informed consent obtained. The patient was placed in a supine position on the CT scanner and preliminary images through the lower abdomen performed. This revealed a 8.2 x 9.7 cm oblong fluid collection in the left retroperitoneum.. A left lateral approach was selected and the area prepped/draped in the usual sterile fashion. Conscious sedation and monitoring were provided throughout the procedure by nurse. An 18-gauge needle was advanced into the collection and 10 cc of clear yellow fluid aspirated. A specimen was sent to microbiology and chemistry for BUN and creatinine. . A 0.035 J-wire was coiled within the fluid collection. Sequential dilatation was performed with subsequent placement of a 12 Faroese pigtail drain. Approximately 500 cc of yellow fluid was aspirated. The drain was sutured to the skin and placed to gravity drainage. Completion images were performed. The patient tolerated the procedure well. IMPRESSION: 1. CT-guided left retroperitoneal abscess drainage as described above.
[2017-02-07] MEDS ORDERED: MYRBETRIQ 50 MG PO SCH (22:00)
[2017-02-08] MEDS ORDERED: Oxycodone/Acetaminophen 5/325 mg Tab PO STA (02:49)
[2017-02-08 06:12] LABS: BASO # 0.01 K/mm3 (0.0-2.0); BASO % 0.1 % (0.0-3.0); EOS # 0.2 (0.0-0.7); EOS % 2.4 % (1.5-5.0); GRAN # 5.95 (1.4-6.5); GRAN % 77.8 % (50.0-68.0); HEMATOCRIT 28.8 % (42.0-52.0); LYMPH # 1.1 (1.2-3.4); LYMPH % 14.5 % (22.0-35.0); MEAN CELL VOLUME 93.2 fl (80.0-105.0); MEAN CORPUSCULAR HEMOGLOBIN 30.4 pg (25.0-35.0); MEAN CORPUSCULAR HGB CONC 32.6 g/dl (31.0-37.0); MONO # 0.4 (0.1-0.6); MONO % 5.2 % (1.0-6.0); RED CELL DISTRIBUTION WIDTH 15.5 % (11.5-14.5); WHITE BLOOD COUNT 7.7 10^3/ul (4.5-11.0)
[2017-02-08 06:38] LABS: ALKALINE PHOSPHATASE 137 U/L (38-126); ALT/SGPT 45 U/L (7-56); AST/SGOT 55 U/L (17-59); BILIRUBIN,TOTAL 0.3 mg/dL (0.2-1.3); BLOOD UREA NITROGEN 10 mg/dL (7-21); CALCIUM 8.7 mg/dL (8.4-10.5); CARBON DIOXIDE 28 mmol/L (21-33); CHLORIDE 103 mmol/L (98-107); GFR AFRICAN-AMERICAN > 60; GLUCOSE,RANDOM 107 mg/dL (70-110); POTASSIUM 4.1 mmol/L (3.6-5.0); SODIUM 139 mmol/L (132-148); TOTAL PROTEIN 6.4 g/dL (5.8-8.3)
[2017-02-08] MEDS: HYDROmorphone 0.5 mg/0.5 ml ISec IVP PRN ×3 (06:39→15:10)
[2017-02-08] MEDS: Sodium Chloride 0.45% 1,000 ML IV SCH (06:40)
--- NOTE | 2017-02-08 08:01 | CP.PCM.PN ---
Subjective - Date & Time of Evaluation Date of Evaluation: 02/08/17 Time of Evaluation: 07:56 - Subjective Subjective: Surgery Pt s&e. Pt had IR drain placed yesterday. Put out 30cc clear urine mixed with blood. Denies F/C/N/V/D/CP/SOB. Pt reports leg swelling has decreased. + amb. Suprapubic catheter in place. Objective - Vital Signs/Intake and Output Vital Signs (last 24 hours): Temp Pulse Resp BP Pulse Ox 98.4 F 64 16 126/71 99 02/08/17 06:00 02/08/17 06:00 02/08/17 06:00 02/08/17 06:00 02/08/17 06:00 Intake and Output: 02/08/17 02/08/17 06:59 18:59 Intake Total 1560 Output Total 2215 Balance -655 - Medications Medications: Current Medications Acetaminophen (Tylenol 325mg Tab) 650 mg PO Q4 PRN PRN Reason: Fever >100.4 F Amlodipine Besylate (Norvasc) 10 mg PO DAILY [facility] Last Admin: 02/07/17 12:12 Dose: 10 mg Baclofen (Lioresal) 10 mg PO DAILY [facility] Last Admin: 02/07/17 12:12 Dose: 10 mg Gabapentin (Neurontin) 300 mg PO TID [facility] PRN Reason: Protocol Last Admin: 02/07/17 23:44 Dose: 300 mg Home Med (Home Med) 1 unit PO HS [facility] Last Admin: 02/07/17 22:01 Dose: Not Given Hydromorphone HCl (Dilaudid) 0.5 mg IVP Q4H PRN PRN Reason: Pain, severe (8-10) Last Admin: 02/08/17 06:39 Dose: 0.5 mg Ceftriaxone Sodium (Rocephin 1 Gram Ivpb) 1 gm in 100 mls @ 100 mls/hr IVPB DAILY [facility] PRN Reason: Protocol Last Admin: 02/07/17 18:00 Dose: Not Given Sodium Chloride (Sodium Chloride 0.45%) 1,000 mls @ 80 mls/hr IV .[id number] [facility] Stop: 02/08/17 08:00 Last Admin: 02/08/17 06:40 Dose: 80 mls/hr Labetalol HCl (Trandate) 100 mg PO BID [facility] Last Admin: 02/07/17 23:44 Dose: 100 mg Ondansetron HCl (Zofran Inj) 4 mg IVP Q6H PRN PRN Reason: Nausea/Vomiting Oxycodone/Acetaminophen (Percocet 5/325 Mg Tab) 1 tab PO Q4H PRN PRN Reason: Pain, moderate (4-7) Stop: 02/10/17 17:57 Last Admin: 02/08/17 00:57 Dose: 1 tab - Labs Labs: 02/08/17 05:20 02/08/17 05:20 PT 10.2 Seconds (9.9-11.8) 02/06/17 22:25 INR 0.94 (0.93-1.08) 02/06/17 22:25 APTT 28.4 Seconds (23.7-30.8) 02/06/17 22:25 - Constitutional Appears: No Acute Distress - Head Exam Head Exam: ATRAUMATIC, NORMAL INSPECTION, NORMOCEPHALIC - Eye Exam Eye Exam: EOMI, Normal appearance, PERRL Pupil Exam: NORMAL ACCOMODATION, PERRL - ENT Exam ENT Exam: Mucous Membranes Moist, Normal Exam - Neck Exam Neck Exam: Full ROM, Normal Inspection. absent: Lymphadenopathy - Respiratory Exam Respiratory Exam: Clear to Ausculation Bilateral, NORMAL BREATHING PATTERN - Cardiovascular Exam Cardiovascular Exam: REGULAR RHYTHM, +S1, +S2. absent: Murmur - GI/Abdominal Exam GI & Abdominal Exam: Soft, Normal Bowel Sounds. absent: Tenderness Additional comments: LLQ incision healing well. Drain in place. Has scant urine mixed with blood. - Exam Additional comments: suprapubic catheter in place. - Extremities Exam Extremities Exam: Pedal Edema. absent: Normal Inspection Additional comments: LLE edema. - Neurological Exam Neurological Exam: Alert, Awake, CN II-XII Intact, Oriented x3 - Psychiatric Exam Psychiatric exam: Normal Affect, Normal Mood Assessment and Plan - Assessment and Plan (Free Text) Assessment: Urinoma s/p spine surgery POD 1 s/p IR drain -f/u Urology -Monitor drain -Monitor H/H -Transfuse as needed -Monitor VS DW Dr. George
[2017-02-08] MEDS: cefTRIAXone 1 gm 1 GM/100 ML BAG IVPB SCH (09:45)
--- NOTE | 2017-02-08 10:24 | CT ---
PROCEDURE: CT Lumbar Spine without contrast HISTORY: Post procedure left leg numbness. COMPARISON: None. TECHNIQUE: Axial computed tomography images were obtained of the lumbar spine without the use of intravenous contrast. Coronal and sagittal reformatted images were created and reviewed. Radiation dose: Total exam DLP = 606 mGy-cm. This CT exam was performed using one or more of the following dose reduction techniques: Automated exposure control, adjustment of the mA and/or kV according to patient size, and/or use of iterative reconstruction technique. FINDINGS: VERTEBRAE: Unremarkable. No fracture. Normal alignment. DISCS/SPINAL CANAL/NEURAL FORAMINA: L1-2: Mild disc bulge L2-3: Moderate disc bulge. Laminectomy. L3-4: Moderate disc bulge. Laminectomy L4-5: Pedicle screws and intradiscal fusion device. There is a prominent osteophyte centrally and extending to the right neural foramen. This can be seen on image 70 series 2. There is a laminectomy at this level. L5-S1: Pedicle screws and intradiscal fusion device. Normal alignment PARASPINAL SOFT TISSUES: Unremarkable. OTHER FINDINGS: None. IMPRESSION: Status post fusion at L4-5 and L5-S1. No complicating factors identified. Laminectomy from L3 through L4
[2017-02-08] MEDS ORDERED: MYRBETRIQ 50 MG PO SCH (12:44)
[2017-02-08 20:33] VITALS: RESP 20
[2017-02-08] MEDS: Oxycodone/Acetaminophen 5/325 mg Tab PO PRN (21:38)
--- NOTE | 2017-02-08 21:39 | PN ---
DATE: SUBJECTIVE: The patient is a 66-year-old seen and examined, doing well. No nausea or vomiting. No diarrhea. PHYSICAL EXAMINATION: VITAL SIGNS: He is afebrile, pulse 68, respirations 19 and blood pressure 122/77. LUNGS: Bilateral fair airflow. No rhonchi or crackle. HEART: S1 and S2 audible. ABDOMEN: Soft. : His catheter in urinoma is draining concentrated urine and he has suprapubic catheter draining clear urine. NEUROLOGIC: He is awake and alert, complain of leg numbness. LABORATORY EXAM: WBC 7.7, hemoglobin 9.4, hematocrit 28 and platelets 453. Chemistry: Sodium 139, potassium 4.1, chloride 103, CO2 28, BUN 10 and creatinine 1. Blood sugar is 153. His urine is growing gram-negative rods. He had lumbar spine CT scan done that shows status post fusion at L4-L5 and L5-S1. No complicating factors and identified, laminectomy from L3 through L4, pedicle screw and there are disk fusion devices seen. It has normal alignment. ASSESSMENT: 1. Status post disk fusion. 2. Status post CT-guided left retroperitoneal mass drainage and clear urine was drained. 3. Non-insulin dependent diabetes. 4. Hypertension. 5. History of neurogenic bladder. 6. Hyperlipidemia. PLAN: Discussed with the patient and his sister. They are interested to take CDs of lumbar spine and abdominal CT and they will take it to the surgeon in [place], probably he is going to need study and might need ureteral repair, that should be done in [place]. Discussed with the patient's family and make discharge plan as soon as the patient is stable and [place] surgeon is willing to accept. Boyd Covington MD
[2017-02-08] MEDS: Insulin Reg-MEDIUM-Coverage SC SCH (22:51)
[2017-02-09] MEDS: Oxycodone/Acetaminophen 5/325 mg Tab PO PRN ×2 (07:41→14:28)
[2017-02-09] MEDS: Insulin Reg-MEDIUM-Coverage SC SCH ×2 (08:22→17:41)
[2017-02-09] MEDS ORDERED: POLYETHYLENE GLYCOL 3350 17 GM/Dose PACKET PO SCH (10:00)
[2017-02-09] MEDS: cefTRIAXone 1 gm 1 GM/100 ML BAG IVPB SCH (10:10)
--- NOTE | 2017-02-09 13:42 | PN ---
SUBJECTIVE: The patient is 66 years old, seen and examined, lying in bed, seems to be comfortable. No fever, no chills, no nausea, no vomiting, no diarrhea. Eating and tolerating. PHYSICAL EXAMINATION VITAL SIGNS: He is afebrile, pulse 79, respiration 20, blood pressure 142/89. LUNGS: Bilateral fair airflow. No rhonchi or crackle. HEART: S1 and S2 audible. ABDOMEN: Soft. Suprapubic catheter draining clear urine and drain in the urinoma is also draining urine. LABORATORY DATA: WBC 7.7, hemoglobin 9.4, hematocrit 28, platelet of 453. Chemistry; blood sugar is 107. Urine is growing E. coli ESBL positive, probably colonization. The patient does not have white count or fevers. ASSESSMENT AND PLAN: 1. Status post spinal fusion. 2. Status post urinoma and had CT-guided drainage done. 3. Fyq-dndovyz-ykfbitlro diabetes. 4. Hypertension. 5. Hyperlipidemia. PLAN: The patient's sister took CDs of back and abdomen to [facility] surgeon who will discuss with him. The patient is clinically stable, probably he will be discharged, so he can have ureteral repair done in [facility] where he had originally surgery. Boyd Covington MD
--- NOTE | 2017-02-09 14:24 | CP.PCM.PN ---
Subjective - Date & Time of Evaluation Date of Evaluation: 02/09/17 Time of Evaluation: 14:19 - Subjective Subjective: Surgery Progress Note HPI: Patient seen and examined at bedside. Denies any abdominal pain. No tenderness around drain site. Denies any nausea, vomiting, fever, diarrhea. Objective - Vital Signs/Intake and Output Vital Signs (last 24 hours): Temp Pulse Resp BP Pulse Ox 98.3 F 79 20 142/89 94 L 02/09/17 07:30 02/09/17 10:10 02/09/17 07:30 02/09/17 10:13 02/09/17 07:30 Intake and Output: 02/09/17 02/09/17 06:59 18:59 Intake Total 900 720 Output Total 2295 Balance -1395 720 - Medications Medications: Current Medications Acetaminophen (Tylenol 325mg Tab) 650 mg PO Q4 PRN PRN Reason: Fever >100.4 F Amlodipine Besylate (Norvasc) 10 mg PO DAILY [facility] Last Admin: 02/09/17 10:13 Dose: 10 mg Atorvastatin Calcium (Lipitor) 10 mg PO DIN [facility] Baclofen (Lioresal) 10 mg PO DAILY [facility] Last Admin: 02/09/17 10:12 Dose: 10 mg Gabapentin (Neurontin) 300 mg PO TID [facility] PRN Reason: Protocol Last Admin: 02/09/17 10:12 Dose: 300 mg Home Med (Home Med) 1 unit PO HS [facility] Last Admin: 02/08/17 21:38 Dose: 1 unit Hydromorphone HCl (Dilaudid) 0.5 mg IVP Q4H PRN PRN Reason: Pain, severe (8-10) Last Admin: 02/08/17 15:10 Dose: 0.5 mg Ceftriaxone Sodium (Rocephin 1 Gram Ivpb) 1 gm in 100 mls @ 100 mls/hr IVPB DAILY [facility] PRN Reason: Protocol Last Admin: 02/09/17 10:10 Dose: 100 mls/hr Insulin Human Regular (Humulin R Med) 0 units SC ACHS [facility] PRN Reason: Protocol Last Admin: 02/09/17 08:22 Dose: Not Given Labetalol HCl (Trandate) 100 mg PO BID [facility] Last Admin: 02/09/17 10:10 Dose: 100 mg Losartan Potassium (Cozaar) 100 mg PO DAILY [facility] Last Admin: 02/09/17 10:12 Dose: 100 mg Metformin HCl (Glucophage Xr) 500 mg PO BID [facility] Last Admin: 02/09/17 10:17 Dose: 500 mg Ondansetron HCl (Zofran Inj) 4 mg IVP Q6H PRN PRN Reason: Nausea/Vomiting Oxycodone/Acetaminophen (Percocet 5/325 Mg Tab) 2 tab PO Q4H PRN PRN Reason: Pain, moderate (4-7) Stop: 02/10/17 17:57 Last Admin: 02/09/17 07:41 Dose: 2 tab Polyethylene Glycol (Miralax) 17 gm PO DAILY [facility] Last Admin: 02/09/17 10:12 Dose: 17 gm - Labs Labs: 02/08/17 05:20 02/08/17 05:20 PT 10.2 Seconds (9.9-11.8) 02/06/17 22:25 INR 0.94 (0.93-1.08) 02/06/17 22:25 APTT 28.4 Seconds (23.7-30.8) 02/06/17 22:25 - Constitutional Appears: Well, Non-toxic, No Acute Distress - Head Exam Head Exam: ATRAUMATIC, NORMAL INSPECTION, NORMOCEPHALIC - Eye Exam Eye Exam: EOMI Pupil Exam: NORMAL ACCOMODATION - ENT Exam ENT Exam: Mucous Membranes Moist - Respiratory Exam Respiratory Exam: Clear to Ausculation Bilateral, NORMAL BREATHING PATTERN - Cardiovascular Exam Cardiovascular Exam: REGULAR RHYTHM - GI/Abdominal Exam GI & Abdominal Exam: Soft, Normal Bowel Sounds. absent: Distended, Tenderness - Extremities Exam Extremities Exam: absent: Joint Swelling, Tenderness - Neurological Exam Neurological Exam: Alert, Awake, Oriented x3 - Psychiatric Exam Psychiatric exam: Normal Affect, Normal Mood - Skin Skin Exam: Dry, Intact, Normal Color, Warm Assessment and Plan - Assessment and Plan (Free Text) Assessment: 66M w/Urinoma s/p spine surgery; POD 2 s/p IR drain -f/u Urology -Monitor drain -Monitor H/H -Transfuse as needed -Monitor VS DW Dr. Ariel Moon DO
[2017-02-09 16:35] VITALS: BP 116/85; PULSE 74; TEMP 98.2; O2SAT 96
--- NOTE | 2017-02-10 09:47 | PQF GENQUE ---
This form is a permanent part of the medical record Dr. Covington, Clarification of your documentation is requested to better reflect the severity of illness and intensity of treatment of your patient. Indicators present: Patient was presented with left retroperitoneal hematoma. Please clarify if this is a complication of the spinal fusion done in [facility] OR a traumatic retroperitoneal hematoma due to patient lost his balance and he fell. Please we need CLARIFICATION and specify below your response. Thank you. [] Specify: [] [] Specify: [] [] Specify: [] [] Specify: [] Location in the medical record that reflects the above clinical findings: [] consult Treatment Provided: [] drainage of retroperitoneum by Dr. Kareem Schaefer PHYSICIAN'S RESPONSE Based on your medical judgment of the clinical indicators outlined above please clarify the following: [] Practitioner response [x] If unable to determine, please check the box, sign and date. Present On Admission (POA) Indicator: [x] Present at the time of admission [] Not present at the time of admission [] Clinically Undetermined In responding to this query, please exercise your independent professional judgment. The fact that a question is asked does not imply that any particular answer is desired or expected. Thank you for your clarification on this documentation. If you have any questions please call:[ ] * Thank you, [ ]FABIÁN JOLLEYrotary rock drilling machine operator OLIVIA
== END 2017-02-09 18:50 | disposition home or self-care (01) | DRG 394 ==
LOC: ED 22:55 → ERH 02-07 03:07 → 2RNO 02-07 05:02 → 5RNO 02-08 14:05
PROVIDERS: ADMIT Internal Medicine; ATTEND Internal Medicine
PROC: 30233N1 Transfusion of Nonautologous Red Blood Cells into Peripheral Vein, Percutaneous Approach (ICD-10-PCS; 2017-02-07)
PROC: 0W9H30Z Drainage of Retroperitoneum with Drainage Device, Percutaneous Approach (ICD-10-PCS; principal; 2017-02-07 16:30)
DX: K66.1 Hemoperitoneum (principal); N39.0 Urinary tract infection, site not specified; N13.30 Unspecified hydronephrosis; I10 Essential (primary) hypertension; B96.20 Unspecified Escherichia coli [E. coli] as the cause of diseases classified elsewhere; E11.9 Type 2 diabetes mellitus without complications; N31.9 Neuromuscular dysfunction of bladder, unspecified; E78.5 Hyperlipidemia, unspecified; Z16.12 Extended spectrum beta lactamase (ESBL) resistance; D64.9 Anemia, unspecified; N36.8 Other specified disorders of urethra; Z98.1 Arthrodesis status; Z79.84 Long term (current) use of oral hypoglycemic drugs; Z87.891 Personal history of nicotine dependence